=== PATIENT | female | born 1935 | race Caucasian/White ===

== ENCOUNTER 2020-12-13 05:04 | Inpatient (IN) ==
[2020-12-13] MEDS ORDERED: NITROGLYCERIN 2% OINTMENT 30GM TUBE EXT STA (05:48)
[2020-12-13] MEDS ORDERED: FUROSEMIDE 40 MG/4 ML VIAL IV STA ×2 (05:48→06:19)
[2020-12-13 06:00] LABS: Basophils # (auto) 0.02 K/uL (0-0.2); Basophils % (auto) 0.2 %; Hematocrit (blood only) 37.1 % (37-47); Hemoglobin 12.6 g/dL (12.0-16.0); Immature Granulocytes # (auto) 0.14 K/uL (0.00-0.02); Immature Granulocytes % (auto) 1.1 %; Lymphocytes % (auto) 3.8 %; Mean Corpuscular Hemoglobin 31.7 pg (25-34); Mean Corpuscular Volume 93.2 fL (80-100); Mean Platelet Volume 10.8 fL (7.4-10.4); Monocytes # (auto) 1.26 K/uL (0.11-0.59); Monocytes % (auto) 9.7 %; Neutrophils # (auto) 11.11 K/uL (1.4-6.5); Neutrophils % (auto) 85.2 %; Platelet Count 405 K/uL (130-400); RDW Coefficient of Variation 14.7 % (11.5-14.5); RDW Standard Deviation 50.1 fL (36.4-46.3); Red Blood Count 3.98 M/uL (4.2-5.4); White Blood Count 13.03 K/uL (4.8-10.8)
[2020-12-13 06:08] LABS: Albumin Level 2.5 gm/dl (3.4-5.0); Calcium 9.1 mg/dl (8.5-10.1); Creatinine Clr Calc Pharmacy 23.5 ml/min; Est GFR (African American) 27.4 ml/min; Est GFR (Non-African American) 23.6 ml/min; Magnesium 2.5 mg/dl (1.8-2.4); Potassium 3.4 mmol/L (3.5-5.1)
[2020-12-13 06:22] LABS: Albumin Globulin Ratio 0.4 (0.9-2); Bilirubin,Total 1.3 mg/dl (0.2-1); Globulin 5.7 gm/dl (2.5-4.0); Total Protein 8.2 gm/dl (6.4-8.2); Troponin I 0.095 ng/ml (0-0.045)
[2020-12-13 06:30] LABS: Influenza A virus by PCR Negative (Negative); Influenza B virus by PCR Negative (Negative)
[2020-12-13] MEDS ORDERED: LACTATED RINGER'S 250 ML IV ONE (06:39)
[2020-12-13] MEDS ORDERED: LACTATED RINGER'S 1,000 ML IV SCH (06:45)
[2020-12-13] MEDS ORDERED: cefTRIAXone SODIUM 1,000 MG/50 ML BAG IV STA (06:45)
[2020-12-13 06:48] LABS: Appearance Urine Turbid (Clear); Bacteria Urine Automated 4+ (Negative); Blood Urine 3+ (Negative); Color Urine Orange; Glucose Urine UA Negative (Negative); Ketones Urine 1+ (Negative); Leukocyte Esterase Urine 2+ (Negative); Nitrite Urine Negative (Negative); Protein Urine 2+ (Negative); RBC Urine Automated >30 /hpf (0-4); Specific Gravity Urine 1.021 (1.000-1.030); Urobilinogen Urine Negative (Negative)
[2020-12-13 07:00] LABS: Bilirubin Urine 1+ (Negative)
[2020-12-13] MEDS ORDERED: dexAMETHasone 6 MG in SYRINGE 0 ML IV ONE (07:25)
[2020-12-13] MEDS ORDERED: DEXAMETHASONE SOD INJ 4 MG/ML VIAL ONE (07:38)
[2020-12-13] MEDS ORDERED: LORazepam 0.5 MG/1 ML VIAL IV STA (07:46)
--- NOTE | 2020-12-13 08:28 | XRay Report ---
SINGLE VIEW CHEST CLINICAL HISTORY: Dyspnea. FINDINGS: An AP, portable, upright chest radiograph is compared to study dated 03/31/2019 and correlat ed with chest CT dated 04/13/2015. The examination is degraded by portable technique and patient rotat ion. The heart is mildly enlarged noting atherosclerotic calcification of the thoracic aorta. Hazy ai rspace opacities are seen throughout both lungs. No large pleural effusion or pneumothorax is identif ied. The skeletal structures are osteopenic. The bony thorax is grossly intact. IMPRESSION: Hazy airspace opacities are seen throughout both lungs. Differential considerations inclu de fluid overload/edema and/or an infectious/inflammatory pneumonitis. Clinical correlation will be r equired and radiographic follow-up to resolution is recommended. ACT 112: Negative or not required by law. Electronically signed by: Taco Monzon M.D. 12/13/2020 8:26 AM
--- NOTE | 2020-12-13 08:32 | XRay Report ---
XR pelvis 1-2V routine CLINICAL HISTORY: Left hip pain. COMPARISON STUDY: Abdomen and pelvis CT 04/13/2015. FINDINGS: Severe osteoarthritis of the right hip again noted. There is a left total hip arthroplasty. The hardware appears intact. No fracture or dislocation within the pelvis or hips. Soft tissues are unremarkable. The visualized sacrum is intact. IMPRESSION: No fractures within the pelvis or hips. ACT 112: Negative or not required by law. Electronically signed by: Guido Richmond M.D. 12/13/2020 8:30 AM
[2020-12-13] MEDS: POTASSIUM CHLORIDE / WTR 10 MEQ/100 ML PLCT IV SCH ×2 (08:57→12:14)
--- NOTE | 2020-12-13 09:41 | History & Physical Report ---
Date of Service December 13, 2020 Assessment & Plan (1) Acute respiratory failure with hypoxia: (2) Sepsis: (3) Pneumonia due to COVID-19 virus: Plan: This is an 85-year-old female who has significant past medical history of depression with anxiety, chronic interstitial cystitis, HLD, cerebral vascular disease, somatization, IBS who presents to ER secondary to altered mental status x2 days. Pt meets Sepsis criteria on admission 2/2 to wbc 13k, tachypnea, tachycardia Source: Covid PNA and possible UTI Blood and urine cultures pending Received IV rocephin in ED Started on LR @ 100cc/hr - no bolus 2/2 to initial concern for volume overload and in setting of covid-19 ESR 82, CRP 29.2, procalcitonin 0.58 admit to PCU continue bipap IV Dexamethasone daily Currently does not meet criteria for Remdesivir 2/2 to renal function, reassess daily and initiate if able Pt with restlessness and agitation, will require 1:1 for now albuterol neb tx QID 2g rocephin daily; 100mg IV doxy bid obtain MRSA screen IV pepcid for GI prophylaxis keep NPO 2/2 to encephalopathy and requiring bipap therapy Asp precautions given diarrhea likely 2/2 to covid but will check stool culture and cdiff (4) Acute metabolic encephalopathy: Plan: Multi factorial in setting of sepsis, covid-19, UTI, YUMIKO and hypernatremia (5) UTI (urinary tract infection): Plan: UA concerning for UTI continue IV rocephin await urine culture heredia cath placed 2/2 to AMS (6) Elevated troponin: Plan: Initial trop 0.095 no c/o chest pain, ecg w/o st t wave abnormality likely demand ischemia in setting of yumiko and hypoxia will cycle q6h no prior hx of cad (7) YUMIKO (acute kidney injury): Plan: baseline cr ~ 1.0 bun/cr 51 and 1.90 obtain urine studies/serum osm likely due to dehydration/pre renal (8) Hypernatremia: Plan: suspect acute likely 2/2 to GI loss and poor intake 3.0L free water deficit given mild hyperglycemia and in setting of dexamethasone administration will give IV LR @ 100cc/hr x 2 L bmp @ 1100 & 1700 (9) Metabolic acidosis: Plan: likely multifactorial in setting of YUMIKO, lactic acidosis, electrolyte derangements, acute resp failure obtain abg (10) Lactic acidosis: Plan: LA 2.8, likely multifactorial in setting of possible sepsis, hypoxia and yumiko continue IVF, cycle (11) Hypokalemia: Plan: k 3.4, replaced monitor bmp (12) Pre-diabetes: Plan: a1c 5.9 monitor accu checks given dexamethasone administration if bsg consistently elevated add insulin coverage (13) DVT prophylaxis: Plan: SQ Heparin 7500 Q8hr per covid protocol Dipso: PCU PCP: Genna Velazquez DNR/DNI with guarded prognosis, discussed with at bedside Pt was seen and examined in collaboration with Dr. Dhaliwal, please see addendum History of Present Illness Chief Complaint: AMS x 2 days. Primary Care Provider: Sowmya Velazquez, This is an 85-year-old female who has significant past medical history of depression with anxiety, chronic interstitial cystitis, HLD, cerebral vascular disease, somatization, IBS who presents to ER secondary to altered mental status x2 days. is at bedside and provides history. Unable to obtain history and ROS from patient. He states he has noted increased confusion over the last several months. No formal diagnosis of dementia. However over the past 2 days he has noticed a significant increase in confusion, lethargy, poor oral intake, sinus congestion and cough x1 day. He also admits to patient having diarrhea for the last 2 to 3 days. He denies any documented fever patient complaint of chest pain or visible respiratory distress. He states that she has been in the house and has not gone anywhere for the past 2 years. She is not vaccinated for Covid. and daughter leave the house for work purposes. No known confirmed exposure. states at baseline she is alert to self and surroundings, able to feed herself with assistance and able to walk with assistance. This is rapidly declined over the past 2 days. He states overall intake has been diminished for the past 2 days, but over the last several months her appetite has decreased. Over the past 2 days he has only got a few ounces of water in her. She has not been able to take any of her medication. History from also difficult to obtain. In ED patient was on respiratory standpoint and hypoxic. She did require BiPAP therapy initially and there was concern for possible volume overload and she received 20 mg of IV Lasix. Lab work revealed elevated WBC 13.03, H&H 12.6 and 37.11, sodium 152 calcium 3.4, BUN for 1, creatinine 1.90, glue was 140, lactate 2.8, troponin 0 0.095, positive urine this, chest x-ray concerning for pneumonia or edema and SARS-CoV-2 positive. Allergies Allergy/AdvReac Type Severity Reaction Status Date / Time Penicillins Allergy Severe SWELLING Verified 12/13/20 08:20 OF THE FACE Sulfa (Sulfonamide Allergy Severe Hives Verified 12/13/20 08:20 Antibiotics) naproxen Allergy Intermediate RASH Verified 12/13/20 08:20 paroxetine Allergy Intermediate MUSCLE PAIN Verified 12/13/20 08:20 tapentadol Allergy Mild SKIN Verified 12/13/20 08:20 IRRITATION codeine AdvReac Mild DROWSINESS Verified 12/13/20 08:20 Home Medications Medication Instructions Recorded Confirmed Type Lactobacills gasseri-Bifidobac 1 cap PO DAILY 12/13/20 12/13/20 History bifidum,longum 1.5 billion cell capsule ([facility]) Multiple Minerals Vitamin 1 tab PO DAILY 12/13/20 12/13/20 History Prevagen 10 mg PO DAILY 12/13/20 12/13/20 History Zantac 150mg Tablet 150 mg PO BID 12/13/20 12/13/20 History albuterol sulfate 90 mcg/actuation 1 inh INHALATION QID PRN 12/13/20 12/13/20 History aerosol inhaler (ProAir HFA) cholecalciferol (vitamin D3) 125 125 mcg PO DAILY 12/13/20 12/13/20 History mcg (5,000 unit) tablet (Vitamin D3) conjugated estrogens 0.625 mg 0.625 mg PO DAILY 12/13/20 12/13/20 History tablet (Premarin) cyanocobalamin (vitamin B-12) 500 500 mcg PO DAILY 12/13/20 12/13/20 History mcg tablet (Vitamin B-12) diclofenac sodium 50 mg 50 mg PO TID PRN 12/13/20 12/13/20 History tablet,delayed release fluocinonide 0.05 % topical 1 applic TOPICAL BID PRN 12/13/20 12/13/20 History solution garlic 1,000 mg capsule (garlic 1,000 mg PO DAILY 12/13/20 12/13/20 History oil) hydroxyzine HCl 10 mg tablet 10 mg PO Q6H PRN 12/13/20 12/13/20 History magnesium 250 mg tablet 250 mg PO DAILY 12/13/20 12/13/20 History methenamine-sodium salicylate 162 1 tab PO DAILY PRN 12/13/20 12/13/20 History mg-162.5 mg tablet (Cystex Plus (methenamine-sodium salicylate)) metronidazole 0.75 % topical cream 1 applic TOPICAL BID PRN 12/13/20 12/13/20 History (MetroCream) polyethylene glycol 3350 17 17 g PO DAILY 12/13/20 12/13/20 History gram/dose oral powder (Miralax) senna-fennel tablet 1 tab PO DAILY 12/13/20 12/13/20 History Past Med/Surg History Medical History Cerebrovascular disease Chronic interstitial cystitis Depression with anxiety Diverticulitis Surgical History H/O: hysterectomy History of appendectomy History of cystoscopy History of hemorrhoidectomy History of hip replacement Left History of oophorectomy History of partial colectomy History of tubal ligation S/P tonsillectomy and adenoidectomy Family History Brother Heart disease Father Alcohol abuse Mother CHF (congestive heart failure) Social History Smoking Status: Never smoker Hx Alcohol Use: No Hx Substance Use: No Preferred Language: Turkmen Communication Ability: Effective marital status: Current Living Situation: Spouse Feels Safe at Home: Yes Assistive Devices: Oxygen - Continuous Review of Systems Review of Systems: Unobtainable due to cognitive status Physical Exam Physical Exam: Constitutional: WD/WN, vitals as above, +bipap, sitting up in bed, restless and constantly reaching,unable to answer questions appropriately, confused Head: Normocephalic, Atraumatic Eyes: PERRL, conjunctivae normal, anicteric sclerae ENMT: external ear and nose normal, oropharynx normal Neck: trachea midline, no thyromegaly normal visual inspection Respiratory: increased respiratory effort, lungs clear to auscultation, no wheeze, rales, rhonchi. +bipap Cardiovascular: RRR, no murmur, no edema Vessels: no JVD or carotid bruit Chest: normal inspection of chest Abdomen: normal bowel sounds, soft, nontender, no hepatosplenomegaly Musculoskeletal: no cyanosis or clubbing, pt unable to cooperate with strength testing but arom x 4 Skin: no rashes, warm and dry normal turgor Neurologic: PERRL no face palsy, CN's II-XI grossly intact bilaterally and moves all extremities Psychiatric: alert but not oriented, confused Lymphatic: no cervical or axillary lymphadenopathy : deferred Results & Data Results & Data ([facility]) Vital Signs (Past 12 Hours) Vital Signs Temp Pulse Resp BP Pulse Ox 12/13/20 09:16 24 118/70 96 12/13/20 09:00 90 29 H 97 12/13/20 08:50 29 H 99 12/13/20 08:47 29 H 95 12/13/20 08:30 96 H 25 H 98 12/13/20 08:20 91 H 25 H 96 12/13/20 08:10 117 H 24 94 12/13/20 08:02 87 23 94 12/13/20 07:50 95 H 22 12/13/20 07:47 91 H 24 99 12/13/20 07:32 88 25 H 96 12/13/20 07:17 98 H 23 98/46 L 95 12/13/20 07:00 84 20 95 12/13/20 06:50 86 23 96 12/13/20 06:47 89 24 94 12/13/20 06:30 20 93 12/13/20 06:16 104 H 24 115/73 95 12/13/20 06:03 104 H 94 12/13/20 06:01 94 H 20 106/72 94 12/13/20 05:40 101 H 29 H 96/70 L 94 12/13/20 05:36 104 H 24 96 12/13/20 05:34 25 H 92 12/13/20 05:15 36.5 C 102 H 30 H 115/64 83 L Diagnostic Findings Chest X-Ray 12/13/20 05:49 SINGLE VIEW CHEST CLINICAL HISTORY: Dyspnea. FINDINGS: An AP, portable, upright chest radiograph is compared to study dated 03/31/2019 and correlated with chest CT dated 04/13/2015. The examination is degraded by portable technique and patient rotation. The heart is mildly enlarged noting atherosclerotic calcification of the thoracic aorta. Hazy airspace opacities are seen throughout both lungs. No large pleural effusion or pneumothorax is identified. The skeletal structures are osteopenic. The bony thorax is grossly intact. IMPRESSION: Hazy airspace opacities are seen throughout both lungs. Differential considerations include fluid overload/edema and/or an infectious/inflammatory pneumonitis. Clinical correlation will be required and radiographic follow-up to resolution is recommended. ACT 112: Negative or not required by law. Electronically signed by: Taco Monzon M.D. 12/13/2020 8:26 AM Pelvis X-Ray 12/13/20 05:53 XR pelvis 1-2V routine CLINICAL HISTORY: Left hip pain. COMPARISON STUDY: Abdomen and pelvis CT 04/13/2015. FINDINGS: Severe osteoarthritis of the right hip again noted. There is a left total hip arthroplasty. The hardware appears intact. No fracture or dislocation within the pelvis or hips. Soft tissues are unremarkable. The visualized sacrum is intact. IMPRESSION: No fractures within the pelvis or hips. ACT 112: Negative or not required by law. Electronically signed by: Guido Richmond M.D. 12/13/2020 8:30 AM Medications Administered Medication List Lactated Ringer's (Lr) 1,000 mls @ 100 mls/hr IV .Q10H SHAYLEE Stop: 01/12/21 06:44 Last Admin: 12/13/20 07:30 Dose: 100 mls/hr Documented by: [id number] Potassium Chloride (K Kj / Wtr) 10 meq in 100 mls @ 100 mls/hr IV Q1H SHAYLEE Stop: 12/13/20 10:29 Last Admin: 12/13/20 08:57 Dose: 100 mls/hr Documented by: [id number] Discontinued Medications Dexamethasone (Dexamethasone Sod Inj 4 Mg/Ml Vial) Confirm Administered Dose 8 mg .ROUTE .STK-MED ONE Stop: 12/13/20 07:39 Last Admin: 12/13/20 07:43 Dose: 6 mg Documented by: [id number] Furosemide (Furosemide 40 Mg/4 Ml Vial) 40 mg IV NOW STA Stop: 12/13/20 05:49 Last Admin: 12/13/20 06:19 Dose: Not Given Documented by: [id number] Furosemide (Furosemide 40 Mg/4 Ml Vial) 20 mg IV NOW STA Stop: 12/13/20 06:20 Last Admin: 12/13/20 06:25 Dose: 20 mg Documented by: [id number] Lactated Ringer's (Lr) 250 mls @ 999 mls/hr IV .Q16M ONE Stop: 12/13/20 06:54 Last Infusion: 12/13/20 07:34 Dose: 0 mls/hr Documented by: [id number] Admin: 12/13/20 06:56 Dose: 999 mls/hr Documented by: [id number] Ceftriaxone Sodium (Rocephin) 1,000 mg in 50 mls @ 100 mls/hr IV NOW STA Stop: 12/13/20 07:14 Last Infusion: 12/13/20 07:33 Dose: 0 mls/hr Documented by: [id number] Admin: 12/13/20 06:56 Dose: 100 mls/hr Documented by: [id number] Dexamethasone 6 mg/ Syringe 1.5 mls @ 1 mls/min IV ONE ONE Stop: 12/13/20 07:26 Last Admin: 12/13/20 07:43 Dose: Not Given Documented by: [id number] Lorazepam (Ativan) 0.5 mg in 1 mls @ 1 mls/min IV NOW STA Stop: 12/13/20 07:47 Last Admin: 12/13/20 07:54 Dose: 1 mls/min Documented by: [id number] Nitroglycerin (Nitroglycerin 2% Ointment 30gm Tube) 0.5 inch EXT NOW STA Stop: 12/13/20 05:49 Last Admin: 12/13/20 06:18 Dose: Not Given Documented by: [id number] ECG Rhythm: normal sinus COVID-19 Results Results COVID-19 Adm Lab Results: RBC 3.52 M/uL (4.2-5.4) L 12/16/20 WBC 14.29 K/uL (4.8-10.8) H 12/16/20 Hgb 10.8 g/dL (12.0-16.0) L 12/16/20 Hct 32.0 % (37-47) L 12/16/20 Plt Count 313 K/uL (130-400) 12/16/20 Neutrophils (%) (Auto) 85.1 % 12/15/20 Lymphocytes (%) (Auto) 10.2 % 12/15/20 Monocytes # (Auto) 0.39 K/uL (0.11-0.59) 12/15/20 Eosinophils # (Auto) 0.00 K/uL (0-0.5) 12/15/20 Immature Granulocyte % (Auto) 1.7 % 12/15/20 Neutrophils # (Auto) 12.02 K/uL (1.4-6.5) H 12/15/20 Lymphocytes # (Auto) 1.44 K/uL (1.2-3.4) 12/15/20 Monocytes # (Auto) 0.39 K/uL (0.11-0.59) 12/15/20 Eosinophils # (Auto) 0.00 K/uL (0-0.5) 12/15/20 Basophils # (Auto) 0.03 K/uL (0-0.2) 12/15/20 Immature Granulocyte # (Auto) 0.24 K/uL (0.00-0.02) H 12/15/20 Na 142 mmol/L (136-145) 12/16/20 K 4.2 mmol/L (3.5-5.1) 12/16/20 Cl 110 mmol/L (98-107) H 12/16/20 CO2 26 mmol/L (21-32) 12/16/20 Anion Gap 6.0 (3-11) 12/16/20 BUN 39 mg/dl (7-18) H 12/16/20 Creatinine 1.25 mg/dl (0.6-1.2) H 12/16/20 BUN/Creatinine Ratio 31.5 (10-20) H 12/16/20 Glucose Level 161 mg/dl (70-99) H 12/16/20 Ca 8.8 mg/dl (8.5-10.1) 12/16/20 Phosphorus Level 2.0 mg/dl (2.5-4.9) L 12/16/20 Total Bilirubin 1.0 mg/dl (0.2-1) 12/16/20 AST/SGOT 40 U/L (15-37) H 12/16/20 ALT/SGPT 29 U/L (12-78) 12/16/20 Alkaline Phosphatase 59 U/L (45-117) 12/16/20 Total Protein 7.2 gm/dl (6.4-8.2) 12/16/20 Albumin 2.1 gm/dl (3.4-5.0) L 12/16/20 Globulin 5.1 gm/dl (2.5-4.0) H 12/16/20 Albumin/Globulin Ratio 0.4 (0.9-2) L 12/16/20 Troponin I 0.159 ng/ml (0-0.045) H* 12/13/20 [id number]-Type Natriuretic Pep 1579 pg/ml (0-1800) 12/13/20 CRP 13.00 mg/dl (0-0.29) H 12/16/20 Procalcitonin 0.42 ng/ml (0-0.5) 12/15/20 D-Dimer 5120 ug/L FEU (0-500) H* 12/16/20 PTT 133.0 Seconds (21.0-31.0) H* 12/16/20 INR 1.3 (0.9-1.1) H 12/15/20 COVID-19 PCR POSITIVE (Negative) A* 12/13/20 ABG pH 7.45 (7.35-7.45) 12/13/20 ABG pCO2 30 mmHg (35-46) L 12/13/20 ABG pO2 89 mmHg (80-95) 12/13/20 ABG HCO3 20 mmol/L (19-24) 12/13/20 ABG O2 Saturation 97.4 % (90-95) H 12/13/20 ABG Base Excess -2.5 mEq/L (-9-1.8) 12/13/20 Chest X-Ray 12/13/20 Code Status & VTE Plan Code Status DNR/DNI discussed with at bedside VTE Prophylaxis Plan VTE Prophylaxis will be ordered: Yes Supervising Physician Co-Signing Physician Notes Pt was seen and examined. Agreed with Micaela KEARNS exam, assessment and plan. 85-year-old female who has significant past medical history of depression with anxiety, chronic interstitial cystitis, HLD, cerebral vascular disease, somatization, IBS who presents to ER secondary to altered mental status x2 days. history obtained at bedside due to pt changed in mental status. as per , pt has been confused for the last few days, but in the last 2 days her symptoms got worst with increased confusion, lethargy and poor oral intake. In ED she was hypoxic where she was placed on Bipap. Lab on admission revealed elevated WBC 13.03, H&H 12.6 and 37.11, sodium 152 calcium 3.4, BUN for 1, creatinine 1.90, glue was 140, lactate 2.8, troponin 0 0.095 and positive COVID 19. Will start on dexametasone 6mg IV daily, but does not meet criteria for Remdesivir due to to renal function. Will start on IV rocephin and doxycycline. Will follow urine and blood cx. Continue gently fluid hydration. Will monitor BMP. Will continue monitor closely in tele. MD Isra
[2020-12-13] MEDS ORDERED: cefTRIAXone SODIUM 2,000 MG in DEXTROSE 5% 50 ML IV ONE (10:00)
[2020-12-13 10:01] LABS: Estimated Average Glucose 123 mg/dl; Hemoglobin A1C 5.9 % (4.5-5.6)
[2020-12-13] MEDS ORDERED: CARBOHYDRATES FOR HYPOGLYCEMIA PO PRN (10:37)
[2020-12-13] MEDS ORDERED: GLUCOSE 10 TABS/TUBE PO PRN (10:37)
[2020-12-13] MEDS ORDERED: DEXTROSE 50% 50 ML SYRINGE IV PRN (10:37)
[2020-12-13] MEDS ORDERED: GLUCOSE 40% GEL 15 GM TUBE PO PRN (10:37)
[2020-12-13] MEDS ORDERED: ONDANSETRON INJ 2 MG/ML 2 ML VIAL IV PRN (10:37)
[2020-12-13] MEDS ORDERED: GLUCAGON FOR INJ 1 MG VIAL SQ PRN (10:37)
[2020-12-13] MEDS: cefTRIAXone SODIUM 1,000 MG/50 ML BAG IV STA ×2 (10:41→11:54)
[2020-12-13] MEDS: ALBUTEROL 0.083% NEBU SOLN 3 ML VIAL NEB SCH ×3 (11:22→20:34)
[2020-12-13 11:29] LABS: Base Excess ABG -2.5 mEq/L (-9-1.8); HCO3 ABG 20 mmol/L (19-24); Oxygen Saturation ABG 97.4 % (90-95); PCO2 ABG 30 mmHg (35-46); PO2 ABG 89 mmHg (80-95); pH ABG 7.45 (7.35-7.45)
[2020-12-13 11:31] LABS: Allen Test Pos (Pos)
[2020-12-13] MEDS: LACTATED RINGER'S 1,000 ML IV SCH ×2 (11:31→18:33)
[2020-12-13 11:33] LABS: BUN Creatinine Ratio 30.4 (10-20); Calcium 8.8 mg/dl (8.5-10.1); Creatinine Clr Calc Pharmacy 25.4 ml/min; Est GFR (Non-African American) 25.9 ml/min; Potassium 3.7 mmol/L (3.5-5.1)
[2020-12-13 11:52] LABS: Thyroid Stimulating Hormone 0.174 uIu/ml (0.300-4.500); Troponin I 0.166 ng/ml (0-0.045)
[2020-12-13 12:08] LABS: T4 Free Thyroxine 1.53 ng/dl (0.8-1.6)
[2020-12-13] MEDS: DOXYCYCLINE HYCLATE 100 MG in DEXTROSE 5% 100 ML IV SCH ×2 (12:14→23:21)
[2020-12-13] MEDS: FAMOTIDINE 20 MG in SYRINGE 3 ML IV SCH (12:14)
[2020-12-13] MEDS: HEPARIN SOD 5,000 UNIT/0.5 ML VIAL SQ SCH ×2 (15:41→23:21)
[2020-12-13 16:26] LABS: Creatinine Urine Random 79.8 mg/dl
[2020-12-13 17:13] LABS: Calcium 8.6 mg/dl (8.5-10.1); Creatinine Clr Calc Pharmacy 25.4 ml/min; Est GFR (Non-African American) 25.9 ml/min; Potassium 3.6 mmol/L (3.5-5.1)
[2020-12-13 17:24] LABS: Troponin I 0.159 ng/ml (0-0.045)
--- NOTE | 2020-12-13 19:01 | Emergency Department Note ---
History of Present Illness General Chief complaint: Shortness of Breath/Dyspnea Stated complaint: ALTERED LEVEL OF RESPONSIVENESS Home Medications Medication Instructions Recorded Confirmed Type Lactobacills gasseri-Bifidobac 1 cap PO DAILY 12/13/20 12/13/20 History bifidum,longum 1.5 billion cell capsule (RED - [employer]) Multiple Minerals Vitamin 1 tab PO DAILY 12/13/20 12/13/20 History Prevagen 10 mg PO DAILY 12/13/20 12/13/20 History Zantac 150mg Tablet 150 mg PO BID 12/13/20 12/13/20 History albuterol sulfate 90 mcg/actuation 1 inh INHALATION QID PRN 12/13/20 12/13/20 History aerosol inhaler (ProAir HFA) cholecalciferol (vitamin D3) 125 125 mcg PO DAILY 12/13/20 12/13/20 History mcg (5,000 unit) tablet (Vitamin D3) conjugated estrogens 0.625 mg 0.625 mg PO DAILY 12/13/20 12/13/20 History tablet (Premarin) cyanocobalamin (vitamin B-12) 500 500 mcg PO DAILY 12/13/20 12/13/20 History mcg tablet (Vitamin B-12) diclofenac sodium 50 mg 50 mg PO TID PRN 12/13/20 12/13/20 History tablet,delayed release fluocinonide 0.05 % topical 1 applic TOPICAL BID PRN 12/13/20 12/13/20 History solution garlic 1,000 mg capsule (garlic 1,000 mg PO DAILY 12/13/20 12/13/20 History oil) hydroxyzine HCl 10 mg tablet 10 mg PO Q6H PRN 12/13/20 12/13/20 History magnesium 250 mg tablet 250 mg PO DAILY 12/13/20 12/13/20 History methenamine-sodium salicylate 162 1 tab PO DAILY PRN 12/13/20 12/13/20 History mg-162.5 mg tablet (Cystex Plus (methenamine-sodium salicylate)) metronidazole 0.75 % topical cream 1 applic TOPICAL BID PRN 12/13/20 12/13/20 History (MetroCream) polyethylene glycol 3350 17 17 g PO DAILY 12/13/20 12/13/20 History gram/dose oral powder (Miralax) senna-fennel tablet 1 tab PO DAILY 12/13/20 12/13/20 History Allergies Allergy/AdvReac Type Severity Reaction Status Date / Time Penicillins Allergy Severe SWELLING Verified 12/13/20 08:20 OF THE FACE Sulfa (Sulfonamide Allergy Severe Hives Verified 12/13/20 08:20 Antibiotics) naproxen Allergy Intermediate RASH Verified 12/13/20 08:20 paroxetine Allergy Intermediate MUSCLE PAIN Verified 12/13/20 08:20 tapentadol Allergy Mild SKIN Verified 12/13/20 08:20 IRRITATION codeine AdvReac Mild DROWSINESS Verified 12/13/20 08:20 Past Med/Surg History Medical History Cerebrovascular disease Chronic interstitial cystitis Depression with anxiety Diverticulitis Surgical History H/O: hysterectomy History of appendectomy History of cystoscopy History of hemorrhoidectomy History of hip replacement Left History of oophorectomy History of partial colectomy History of tubal ligation S/P tonsillectomy and adenoidectomy Family History Brother Heart disease Father Alcohol abuse Mother CHF (congestive heart failure) Social History (Updated 12/13/20 @ 09:49 by Micaela Murcia PA-C) Smoking Status: Never smoker Hx Alcohol Use: No Hx Substance Use: No Preferred Language: Czech Communication Ability: Unable Communication Ability Comment: pt non-verbal at this time, moans in response marital status: Current Living Situation: Spouse Assistive Devices Comment: unable to assess at this time Physical Exam Vital Signs Vital Signs - 24 hr 12/13/20 05:15 12/13/20 05:34 12/13/20 05:36 Temperature 36.5 C Temperature Source Oral Pulse Rate 102 H 104 H Pulse Rate from SpO2 Sensor 100 H Respiratory Rate 30 H 25 H 24 Respiratory Effort / Characteristics Labored Spontaneous Respiratory Depth Deep Respiratory Pattern Regular Blood Pressure 115/64 Blood Pressure Mean 81 Blood Pressure Position Lying Pulse Oximetry 83 L 92 96 Oxygen Delivery Method Nebulizer Oxygen Flow Rate 15 Fraction of Inspired Oxygen 90 Sepsis Recent Fever Within 48 Hours No Sepsis New/Unexplained Change in Mental Status Yes Sepsis Action Taken by Nursing Physician Notified 12/13/20 05:40 12/13/20 06:01 12/13/20 06:03 Temperature Temperature Source Pulse Rate 101 H 94 H 104 H Pulse Rate from SpO2 Sensor Respiratory Rate 29 H 20 Respiratory Effort / Characteristics Respiratory Depth Respiratory Pattern Blood Pressure 96/70 L 106/72 Blood Pressure Mean 78 83 Blood Pressure Position Pulse Oximetry 94 94 94 Oxygen Delivery Method BiPAP Oxygen Flow Rate Fraction of Inspired Oxygen Sepsis Recent Fever Within 48 Hours Sepsis New/Unexplained Change in Mental Status Sepsis Action Taken by Nursing 12/13/20 06:16 12/13/20 06:30 12/13/20 06:47 Temperature Temperature Source Pulse Rate 104 H 89 Pulse Rate from SpO2 Sensor 90 89 Respiratory Rate 24 20 24 Respiratory Effort / Characteristics Respiratory Depth Respiratory Pattern Blood Pressure 115/73 Blood Pressure Mean 87 66 Blood Pressure Position Pulse Oximetry 95 93 94 Oxygen Delivery Method Oxygen Flow Rate Fraction of Inspired Oxygen 90 Sepsis Recent Fever Within 48 Hours Sepsis New/Unexplained Change in Mental Status Sepsis Action Taken by Nursing 12/13/20 06:50 12/13/20 07:00 12/13/20 07:17 Temperature Temperature Source Pulse Rate 86 84 98 H Pulse Rate from SpO2 Sensor 86 84 88 Respiratory Rate 23 20 23 Respiratory Effort / Characteristics Respiratory Depth Respiratory Pattern Blood Pressure 98/46 L Blood Pressure Mean 63 Blood Pressure Position Pulse Oximetry 96 95 95 Oxygen Delivery Method Oxygen Flow Rate Fraction of Inspired Oxygen 90 90 90 Sepsis Recent Fever Within 48 Hours Sepsis New/Unexplained Change in Mental Status Sepsis Action Taken by Nursing 12/13/20 07:32 12/13/20 07:47 12/13/20 07:50 Temperature Temperature Source Pulse Rate 88 91 H 95 H Pulse Rate from SpO2 Sensor 88 95 H 100 H Respiratory Rate 25 H 24 22 Respiratory Effort / Characteristics Respiratory Depth Respiratory Pattern Blood Pressure Blood Pressure Mean Blood Pressure Position Pulse Oximetry 96 99 Oxygen Delivery Method Oxygen Flow Rate Fraction of Inspired Oxygen 90 90 Sepsis Recent Fever Within 48 Hours Sepsis New/Unexplained Change in Mental Status Sepsis Action Taken by Nursing 12/13/20 08:02 12/13/20 08:10 12/13/20 08:20 Temperature Temperature Source Pulse Rate 87 117 H 91 H Pulse Rate from SpO2 Sensor 87 87 91 H Respiratory Rate 23 24 25 H Respiratory Effort / Characteristics Respiratory Depth Respiratory Pattern Blood Pressure Blood Pressure Mean Blood Pressure Position Pulse Oximetry 94 94 96 Oxygen Delivery Method BiPAP BiPAP Oxygen Flow Rate Fraction of Inspired Oxygen 90 90 90 Sepsis Recent Fever Within 48 Hours Sepsis New/Unexplained Change in Mental Status Sepsis Action Taken by Nursing 12/13/20 08:30 12/13/20 08:47 12/13/20 08:50 Temperature Temperature Source Pulse Rate 96 H Pulse Rate from SpO2 Sensor 89 89 89 Respiratory Rate 25 H 29 H 29 H Respiratory Effort / Characteristics Respiratory Depth Respiratory Pattern Blood Pressure Blood Pressure Mean Blood Pressure Position Pulse Oximetry 98 95 99 Oxygen Delivery Method BiPAP BiPAP BiPAP Oxygen Flow Rate Fraction of Inspired Oxygen 90 90 90 Sepsis Recent Fever Within 48 Hours Sepsis New/Unexplained Change in Mental Status Sepsis Action Taken by Nursing 12/13/20 09:00 Temperature Temperature Source Pulse Rate 90 Pulse Rate from SpO2 Sensor 90 Respiratory Rate 29 H Respiratory Effort / Characteristics Respiratory Depth Respiratory Pattern Blood Pressure Blood Pressure Mean Blood Pressure Position Pulse Oximetry 97 Oxygen Delivery Method BiPAP Oxygen Flow Rate Fraction of Inspired Oxygen 90 Sepsis Recent Fever Within 48 Hours Sepsis New/Unexplained Change in Mental Status Sepsis Action Taken by Nursing Course Administered Medications Albuterol (Albuterol 0.083% Nebu Soln 3 Ml Vial) 2.5 mg NEB QIDR SHAYLEE Stop: 01/12/21 10:59 Last Admin: 12/13/20 14:49 Dose: 2.5 mg Documented by: [id number] Admin: 12/13/20 11:22 Dose: 2.5 mg Documented by: [id number] Heparin Sodium (Porcine) (Heparin Sod 5,000 Unit/0.5 Ml Vial) 7,500 units SQ Q8 SHAYLEE Stop: 01/12/21 13:59 Last Admin: 12/13/20 15:41 Dose: 7,500 units Documented by: [id number] Famotidine 20 mg/ Syringe 5 mls @ 2.5 mls/min IV DAILY SHAYLEE Stop: 01/12/21 10:36 Last Admin: 12/13/20 12:14 Dose: 2.5 mls/min Documented by: [id number] Doxycycline Hyclate 100 mg/ (Dextrose) 110 mls @ 50 mls/hr IV Q12H SHAYLEE Stop: 12/20/20 10:36 Last Infusion: 12/13/20 14:45 Dose: 0 mls/hr Documented by: [id number] Admin: 12/13/20 12:14 Dose: 50 mls/hr Documented by: [id number] Lactated Ringer's (Lr) 1,000 mls @ 100 mls/hr IV .Q10H SHAYLEE Stop: 12/14/20 06:36 Last Admin: 12/13/20 18:33 Dose: 100 mls/hr Documented by: [id number] Admin: 12/13/20 11:31 Dose: Not Given Documented by: [id number] Discontinued Medications Dexamethasone (Dexamethasone Sod Inj 4 Mg/Ml Vial) Confirm Administered Dose 8 mg .ROUTE .STK-MED ONE Stop: 12/13/20 07:39 Last Admin: 12/13/20 07:43 Dose: 6 mg Documented by: [id number] Furosemide (Furosemide 40 Mg/4 Ml Vial) 40 mg IV NOW STA Stop: 12/13/20 05:49 Last Admin: 12/13/20 06:19 Dose: Not Given Documented by: [id number] Furosemide (Furosemide 40 Mg/4 Ml Vial) 20 mg IV NOW STA Stop: 12/13/20 06:20 Last Admin: 12/13/20 06:25 Dose: 20 mg Documented by: [id number] Lactated Ringer's (Lr) 1,000 mls @ 100 mls/hr IV .Q10H SHAYLEE Stop: 01/12/21 06:44 Last Infusion: 12/13/20 18:29 Dose: 0 mls/hr Documented by: [id number] Admin: 12/13/20 07:30 Dose: 100 mls/hr Documented by: [id number] Lactated Ringer's (Lr) 250 mls @ 999 mls/hr IV .Q16M ONE Stop: 12/13/20 06:54 Last Infusion: 12/13/20 07:34 Dose: 0 mls/hr Documented by: [id number] Admin: 12/13/20 06:56 Dose: 999 mls/hr Documented by: [id number] Ceftriaxone Sodium (Rocephin) 1,000 mg in 50 mls @ 100 mls/hr IV NOW STA Stop: 12/13/20 07:14 Last Infusion: 12/13/20 07:33 Dose: 0 mls/hr Documented by: [id number] Admin: 12/13/20 06:56 Dose: 100 mls/hr Documented by: [id number] Dexamethasone 6 mg/ Syringe 1.5 mls @ 1 mls/min IV ONE ONE Stop: 12/13/20 07:26 Last Admin: 12/13/20 07:43 Dose: Not Given Documented by: [id number] Lorazepam (Ativan) 0.5 mg in 1 mls @ 1 mls/min IV NOW STA Stop: 12/13/20 07:47 Last Admin: 12/13/20 07:54 Dose: 1 mls/min Documented by: [id number] Potassium Chloride (K Kj / Wtr) 10 meq in 100 mls @ 100 mls/hr IV Q1H SHAYLEE Stop: 12/13/20 10:29 Last Infusion: 12/13/20 15:23 Dose: 0 mls/hr Documented by: [id number] Admin: 12/13/20 12:14 Dose: 100 mls/hr Documented by: [id number] Infusion: 12/13/20 10:57 Dose: 0 mls/hr Documented by: [id number] Admin: 12/13/20 08:57 Dose: 100 mls/hr Documented by: [id number] Ceftriaxone Sodium (Rocephin) 1,000 mg in 50 mls @ 100 mls/hr IV NOW STA Stop: 12/13/20 10:15 Last Infusion: 12/13/20 12:30 Dose: 0 mls/hr Documented by: [id number] Admin: 12/13/20 11:54 Dose: 100 mls/hr Documented by: [id number] Nitroglycerin (Nitroglycerin 2% Ointment 30gm Tube) 0.5 inch EXT NOW STA Stop: 12/13/20 05:49 Last Admin: 12/13/20 06:18 Dose: Not Given Documented by: [id number] Medical Decision Making Laboratory Data Result diagrams: 12/13/20 05:15 12/13/20 16:39 Lab Results 12/13/20 12/13/20 12/13/20 Range/Units 05:13 05:15 05:15 WBC 13.03 H (4.8-10.8) K/uL RBC 3.98 L (4.2-5.4) M/uL Hgb 12.6 (12.0-16.0) g/dL Hct 37.1 (37-47) % MCV 93.2 (80-100) fL MCH 31.7 (25-34) pg MCHC 34.0 (32-36) g/dL RDW Std Deviation 50.1 H (36.4-46.3) fL RDW Coeff of Sid 14.7 H (11.5-14.5) % Plt Count 405 H (130-400) K/uL MPV 10.8 H (7.4-10.4) fL Immature Gran % (Auto) 1.1 % Neut % (Auto) 85.2 % Lymph % (Auto) 3.8 % [place] % (Auto) 9.7 % Eos % (Auto) 0.0 % Baso % (Auto) 0.2 % Neut # (Auto) 11.11 H (1.4-6.5) K/uL Lymph # (Auto) 0.50 L (1.2-3.4) K/uL [place] # (Auto) 1.26 H (0.11-0.59) K/uL Eos # (Auto) 0.00 (0-0.5) K/uL Baso # (Auto) 0.02 (0-0.2) K/uL Immature Gran # (Auto) 0.14 H (0.00-0.02) K/uL ESR (0-30) mm/hr Sodium 152 H (136-145) mmol/L Potassium 3.4 L (3.5-5.1) mmol/L Chloride 118 H (98-107) mmol/L Carbon Dioxide 22 (21-32) mmol/L Anion Gap 12.0 H (3-11) BUN 51 H (7-18) mg/dl Creatinine 1.90 H (0.6-1.2) mg/dl Est Cr Clr Drug Dosing 23.5 ml/min Est GFR ( Amer) 27.4 ml/min Est GFR (Non-Af Amer) 23.6 ml/min BUN/Creatinine Ratio 27.0 H (10-20) Glucose 135 H (70-99) mg/dl POC Glucose 140 H (70-99) mg/dl Estimat Average Glucose mg/dl Hemoglobin A1c (4.5-5.6) % Osmolality (280-300) mOsm/kg Lactate (0.4-2.0) mmol/L Calcium 9.1 (8.5-10.1) mg/dl Magnesium 2.5 H (1.8-2.4) mg/dl Total Bilirubin 1.3 H (0.2-1) mg/dl AST 39 H (15-37) U/L ALT 19 (12-78) U/L Alkaline Phosphatase 65 (45-117) U/L Troponin I 0.095 H* (0-0.045) ng/ml C-Reactive Protein (0-0.29) mg/dl NT-Pro-B Natriuret Pep 1579 (0-1800) pg/ml Total Protein 8.2 (6.4-8.2) gm/dl Albumin 2.5 L (3.4-5.0) gm/dl Globulin 5.7 H (2.5-4.0) gm/dl Albumin/Globulin Ratio 0.4 L (0.9-2) Procalcitonin (0-0.5) ng/ml Urine Color Urine Appearance (Clear) Urine pH (4.5-7.5) Ur Specific [place] (1.000-1.030) Urine Protein (Negative) Urine Glucose (UA) (Negative) Urine Ketones (Negative) Urine Blood (Negative) Urine Nitrite (Negative) Urine Bilirubin (Negative) Urine Urobilinogen (Negative) Ur Leukocyte Esterase (Negative) Urine WBC (Auto) (0-5) /hpf Urine RBC (Auto) (0-4) /hpf U Hyaline Cast (Auto) (0-5) /lpf U Epithel Cells (Auto) (0-5) /lpf Urine Bacteria (Auto) (Negative) COVID-19 Eval Order SARS-CoV-2 (PCR) (Negative) Influ A Molecular Assay (Negative) Influ B Molecular Assay (Negative) 12/13/20 12/13/20 12/13/20 Range/Units 05:15 05:15 05:15 WBC (4.8-10.8) K/uL RBC (4.2-5.4) M/uL Hgb (12.0-16.0) g/dL Hct (37-47) % MCV (80-100) fL MCH (25-34) pg MCHC (32-36) g/dL RDW Std Deviation (36.4-46.3) fL RDW Coeff of Sid (11.5-14.5) % Plt Count (130-400) K/uL MPV (7.4-10.4) fL Immature Gran % (Auto) % Neut % (Auto) % Lymph % (Auto) % [place] % (Auto) % Eos % (Auto) % Baso % (Auto) % Neut # (Auto) (1.4-6.5) K/uL Lymph # (Auto) (1.2-3.4) K/uL [place] # (Auto) (0.11-0.59) K/uL Eos # (Auto) (0-0.5) K/uL Baso # (Auto) (0-0.2) K/uL Immature Gran # (Auto) (0.00-0.02) K/uL ESR (0-30) mm/hr Sodium (136-145) mmol/L Potassium (3.5-5.1) mmol/L Chloride (98-107) mmol/L Carbon Dioxide (21-32) mmol/L Anion Gap (3-11) BUN (7-18) mg/dl Creatinine (0.6-1.2) mg/dl Est Cr Clr Drug Dosing ml/min Est GFR ( Amer) ml/min Est GFR (Non-Af Amer) ml/min BUN/Creatinine Ratio (10-20) Glucose (70-99) mg/dl POC Glucose (70-99) mg/dl Estimat Average Glucose mg/dl Hemoglobin A1c (4.5-5.6) % Osmolality (280-300) mOsm/kg Lactate (0.4-2.0) mmol/L Calcium (8.5-10.1) mg/dl Magnesium (1.8-2.4) mg/dl Total Bilirubin (0.2-1) mg/dl AST (15-37) U/L ALT (12-78) U/L Alkaline Phosphatase (45-117) U/L Troponin I (0-0.045) ng/ml C-Reactive Protein (0-0.29) mg/dl NT-Pro-B Natriuret Pep (0-1800) pg/ml Total Protein (6.4-8.2) gm/dl Albumin (3.4-5.0) gm/dl Globulin (2.5-4.0) gm/dl Albumin/Globulin Ratio (0.9-2) Procalcitonin (0-0.5) ng/ml Urine Color Urine Appearance (Clear) Urine pH (4.5-7.5) Ur Specific [place] (1.000-1.030) Urine Protein (Negative) Urine Glucose (UA) (Negative) Urine Ketones (Negative) Urine Blood (Negative) Urine Nitrite (Negative) Urine Bilirubin (Negative) Urine Urobilinogen (Negative) Ur Leukocyte Esterase (Negative) Urine WBC (Auto) (0-5) /hpf Urine RBC (Auto) (0-4) /hpf U Hyaline Cast (Auto) (0-5) /lpf U Epithel Cells (Auto) (0-5) /lpf Urine Bacteria (Auto) (Negative) COVID-19 Eval Order Covid19 at [facility] SARS-CoV-2 (PCR) POSITIVE A* (Negative) Influ A Molecular Assay Negative (Negative) Influ B Molecular Assay Negative (Negative) 12/13/20 12/13/20 12/13/20 Range/Units 05:15 05:15 05:15 WBC (4.8-10.8) K/uL RBC (4.2-5.4) M/uL Hgb (12.0-16.0) g/dL Hct (37-47) % MCV (80-100) fL MCH (25-34) pg MCHC (32-36) g/dL RDW Std Deviation (36.4-46.3) fL RDW Coeff of Sid (11.5-14.5) % Plt Count (130-400) K/uL MPV (7.4-10.4) fL Immature Gran % (Auto) % Neut % (Auto) % Lymph % (Auto) % [place] % (Auto) % Eos % (Auto) % Baso % (Auto) % Neut # (Auto) (1.4-6.5) K/uL Lymph # (Auto) (1.2-3.4) K/uL [place] # (Auto) (0.11-0.59) K/uL Eos # (Auto) (0-0.5) K/uL Baso # (Auto) (0-0.2) K/uL Immature Gran # (Auto) (0.00-0.02) K/uL ESR 82 H (0-30) mm/hr Sodium (136-145) mmol/L Potassium (3.5-5.1) mmol/L Chloride (98-107) mmol/L Carbon Dioxide (21-32) mmol/L Anion Gap (3-11) BUN (7-18) mg/dl Creatinine (0.6-1.2) mg/dl Est Cr Clr Drug Dosing ml/min Est GFR ( Amer) ml/min Est GFR (Non-Af Amer) ml/min BUN/Creatinine Ratio (10-20) Glucose (70-99) mg/dl POC Glucose (70-99) mg/dl Estimat Average Glucose mg/dl Hemoglobin A1c (4.5-5.6) % Osmolality (280-300) mOsm/kg Lactate (0.4-2.0) mmol/L Calcium (8.5-10.1) mg/dl Magnesium (1.8-2.4) mg/dl Total Bilirubin (0.2-1) mg/dl AST (15-37) U/L ALT (12-78) U/L Alkaline Phosphatase (45-117) U/L Troponin I (0-0.045) ng/ml C-Reactive Protein 29.20 H (0-0.29) mg/dl NT-Pro-B Natriuret Pep (0-1800) pg/ml Total Protein (6.4-8.2) gm/dl Albumin (3.4-5.0) gm/dl Globulin (2.5-4.0) gm/dl Albumin/Globulin Ratio (0.9-2) Procalcitonin 0.58 H (0-0.5) ng/ml Urine Color Urine Appearance (Clear) Urine pH (4.5-7.5) Ur Specific [place] (1.000-1.030) Urine Protein (Negative) Urine Glucose (UA) (Negative) Urine Ketones (Negative) Urine Blood (Negative) Urine Nitrite (Negative) Urine Bilirubin (Negative) Urine Urobilinogen (Negative) Ur Leukocyte Esterase (Negative) Urine WBC (Auto) (0-5) /hpf Urine RBC (Auto) (0-4) /hpf U Hyaline Cast (Auto) (0-5) /lpf U Epithel Cells (Auto) (0-5) /lpf Urine Bacteria (Auto) (Negative) COVID-19 Eval Order SARS-CoV-2 (PCR) (Negative) Influ A Molecular Assay (Negative) Influ B Molecular Assay (Negative) 12/13/20 12/13/20 12/13/20 Range/Units 05:15 05:15 05:30 WBC (4.8-10.8) K/uL RBC (4.2-5.4) M/uL Hgb (12.0-16.0) g/dL Hct (37-47) % MCV (80-100) fL MCH (25-34) pg MCHC (32-36) g/dL RDW Std Deviation (36.4-46.3) fL RDW Coeff of Sid (11.5-14.5) % Plt Count (130-400) K/uL MPV (7.4-10.4) fL Immature Gran % (Auto) % Neut % (Auto) % Lymph % (Auto) % [place] % (Auto) % Eos % (Auto) % Baso % (Auto) % Neut # (Auto) (1.4-6.5) K/uL Lymph # (Auto) (1.2-3.4) K/uL [place] # (Auto) (0.11-0.59) K/uL Eos # (Auto) (0-0.5) K/uL Baso # (Auto) (0-0.2) K/uL Immature Gran # (Auto) (0.00-0.02) K/uL ESR (0-30) mm/hr Sodium (136-145) mmol/L Potassium (3.5-5.1) mmol/L Chloride (98-107) mmol/L Carbon Dioxide (21-32) mmol/L Anion Gap (3-11) BUN (7-18) mg/dl Creatinine (0.6-1.2) mg/dl Est Cr Clr Drug Dosing ml/min Est GFR ( Amer) ml/min Est GFR (Non-Af Amer) ml/min BUN/Creatinine Ratio (10-20) Glucose (70-99) mg/dl POC Glucose (70-99) mg/dl Estimat Average Glucose 123 mg/dl Hemoglobin A1c 5.9 H (4.5-5.6) % Osmolality 337 H (280-300) mOsm/kg Lactate (0.4-2.0) mmol/L Calcium (8.5-10.1) mg/dl Magnesium (1.8-2.4) mg/dl Total Bilirubin (0.2-1) mg/dl AST (15-37) U/L ALT (12-78) U/L Alkaline Phosphatase (45-117) U/L Troponin I (0-0.045) ng/ml C-Reactive Protein (0-0.29) mg/dl NT-Pro-B Natriuret Pep (0-1800) pg/ml Total Protein (6.4-8.2) gm/dl Albumin (3.4-5.0) gm/dl Globulin (2.5-4.0) gm/dl Albumin/Globulin Ratio (0.9-2) Procalcitonin (0-0.5) ng/ml Urine Color [place] Urine Appearance Turbid A (Clear) Urine pH 5.0 (4.5-7.5) Ur Specific [place] 1.021 (1.000-1.030) Urine Protein 2+ H (Negative) Urine Glucose (UA) Negative (Negative) Urine Ketones 1+ H (Negative) Urine Blood 3+ H (Negative) Urine Nitrite Negative (Negative) Urine Bilirubin 1+ H (Negative) Urine Urobilinogen Negative (Negative) Ur Leukocyte Esterase 2+ H (Negative) Urine WBC (Auto) 10-30 H (0-5) /hpf Urine RBC (Auto) >30 H (0-4) /hpf U Hyaline Cast (Auto) 1-5 (0-5) /lpf U Epithel Cells (Auto) 5-10 H (0-5) /lpf Urine Bacteria (Auto) 4+ H (Negative) COVID-19 Eval Order SARS-CoV-2 (PCR) (Negative) Influ A Molecular Assay (Negative) Influ B Molecular Assay (Negative) 12/13/20 Range/Units 08:08 WBC (4.8-10.8) K/uL RBC (4.2-5.4) M/uL Hgb (12.0-16.0) g/dL Hct (37-47) % MCV (80-100) fL MCH (25-34) pg MCHC (32-36) g/dL RDW Std Deviation (36.4-46.3) fL RDW Coeff of Sid (11.5-14.5) % Plt Count (130-400) K/uL MPV (7.4-10.4) fL Immature Gran % (Auto) % Neut % (Auto) % Lymph % (Auto) % [place] % (Auto) % Eos % (Auto) % Baso % (Auto) % Neut # (Auto) (1.4-6.5) K/uL Lymph # (Auto) (1.2-3.4) K/uL [place] # (Auto) (0.11-0.59) K/uL Eos # (Auto) (0-0.5) K/uL Baso # (Auto) (0-0.2) K/uL Immature Gran # (Auto) (0.00-0.02) K/uL ESR (0-30) mm/hr Sodium (136-145) mmol/L Potassium (3.5-5.1) mmol/L Chloride (98-107) mmol/L Carbon Dioxide (21-32) mmol/L Anion Gap (3-11) BUN (7-18) mg/dl Creatinine (0.6-1.2) mg/dl Est Cr Clr Drug Dosing ml/min Est GFR ( Amer) ml/min Est GFR (Non-Af Amer) ml/min BUN/Creatinine Ratio (10-20) Glucose (70-99) mg/dl POC Glucose (70-99) mg/dl Estimat Average Glucose mg/dl Hemoglobin A1c (4.5-5.6) % Osmolality (280-300) mOsm/kg Lactate 2.8 H* (0.4-2.0) mmol/L Calcium (8.5-10.1) mg/dl Magnesium (1.8-2.4) mg/dl Total Bilirubin (0.2-1) mg/dl AST (15-37) U/L ALT (12-78) U/L Alkaline Phosphatase (45-117) U/L Troponin I (0-0.045) ng/ml C-Reactive Protein (0-0.29) mg/dl NT-Pro-B Natriuret Pep (0-1800) pg/ml Total Protein (6.4-8.2) gm/dl Albumin (3.4-5.0) gm/dl Globulin (2.5-4.0) gm/dl Albumin/Globulin Ratio (0.9-2) Procalcitonin (0-0.5) ng/ml Urine Color Urine Appearance (Clear) Urine pH (4.5-7.5) Ur Specific [place] (1.000-1.030) Urine Protein (Negative) Urine Glucose (UA) (Negative) Urine Ketones (Negative) Urine Blood (Negative) Urine Nitrite (Negative) Urine Bilirubin (Negative) Urine Urobilinogen (Negative) Ur Leukocyte Esterase (Negative) Urine WBC (Auto) (0-5) /hpf Urine RBC (Auto) (0-4) /hpf U Hyaline Cast (Auto) (0-5) /lpf U Epithel Cells (Auto) (0-5) /lpf Urine Bacteria (Auto) (Negative) COVID-19 Eval Order SARS-CoV-2 (PCR) (Negative) Influ A Molecular Assay (Negative) Influ B Molecular Assay (Negative) Imaging Data Radiologist's Impression: Chest X-Ray 12/13/20 05:49 SINGLE VIEW CHEST CLINICAL HISTORY: Dyspnea. FINDINGS: An AP, portable, upright chest radiograph is compared to study dated 03/31/2019 and correlated with chest CT dated 04/13/2015. The examination is degraded by portable technique and patient rotation. The heart is mildly enlarged noting atherosclerotic calcification of the thoracic aorta. Hazy airsp gabrielle opacities are seen throughout both lungs. No large pleural effusion or pneumothorax is identified. The skeletal structures are osteopenic. The bony thorax is grossly intact. IMPRESSION: Hazy airspace opacities are seen throughout both lungs. Differential considerations include fluid overload/edema and/or an infectious/inflammatory pneumonitis. Clinical correlation will be required and radiographic follow-up to resolution is recommended. ACT 112: Negative or not required by law. Electronically signed by: Taco Monzon M.D. 12/13/2020 8:26 AM Pelvis X-Ray 12/13/20 05:53 XR pelvis 1-2V routine CLINICAL HISTORY: Left hip pain. COMPARISON STUDY: Abdomen and pelvis CT 04/13/2015. FINDINGS: Severe osteoarthritis of the right hip again noted. There is a left total hip arthroplasty. The hardware appears intact. No fracture or dislocation within the pelvis or hips. Soft tissues are unremarkable. The visualized sacrum is intact. IMPRESSION: No fractures within the pelvis or hips. ACT 112: Negative or not required by law. Electronically signed by: Guido Richmond M.D. 12/13/2020 8:30 AM Discharge Plan Visit Data Chief Complaint: Shortness of Breath/Dyspnea Stated Complaint: ALTERED LEVEL OF RESPONSIVENESS ED Provider: Nanci Santos Patient Disposition: Admitted As Inpatient Discharge Instructions Interventions: ED Discharge Assessment Last Done: 12/13/20 09:54
[2020-12-14] MEDS: HEPARIN SOD 5,000 UNIT/0.5 ML VIAL SQ SCH ×3 (06:29→22:27)
[2020-12-14 06:42] LABS: Basophils # (auto) 0.01 K/uL (0-0.2); Basophils % (auto) 0.1 %; Hematocrit (blood only) 32.7 % (37-47); Immature Granulocytes # (auto) 0.11 K/uL (0.00-0.02); Immature Granulocytes % (auto) 0.9 %; Lymphocytes # (auto) 0.79 K/uL (1.2-3.4); Lymphocytes % (auto) 6.5 %; Mean Corpuscular Hemoglobin 30.6 pg (25-34); Mean Corpuscular Hgb Conc 33.6 g/dL (32-36); Mean Corpuscular Volume 90.8 fL (80-100); Mean Platelet Volume 10.2 fL (7.4-10.4); Monocytes # (auto) 0.59 K/uL (0.11-0.59); Monocytes % (auto) 4.8 %; Neutrophils # (auto) 10.67 K/uL (1.4-6.5); Neutrophils % (auto) 87.7 %; Platelet Count 278 K/uL (130-400); RDW Coefficient of Variation 14.8 % (11.5-14.5); White Blood Count 12.17 K/uL (4.8-10.8)
[2020-12-14 07:15] LABS: Albumin Level 2.1 gm/dl (3.4-5.0); BUN Creatinine Ratio 37.9 (10-20); Creatinine Clr Calc Pharmacy 27.8 ml/min; Est GFR (African American) 33.5 ml/min; Est GFR (Non-African American) 28.9 ml/min; Magnesium 2.3 mg/dl (1.8-2.4); Potassium 3.6 mmol/L (3.5-5.1)
[2020-12-14 07:24] LABS: Albumin Globulin Ratio 0.4 (0.9-2); Bilirubin,Total 0.7 mg/dl (0.2-1); Globulin 5.2 gm/dl (2.5-4.0); Total Protein 7.3 gm/dl (6.4-8.2)
[2020-12-14] MEDS: ALBUTEROL 0.083% NEBU SOLN 3 ML VIAL NEB SCH (07:52)
[2020-12-14] MEDS ORDERED: dexAMETHasone 6 MG in SYRINGE 0 ML IV SCH (09:00)
[2020-12-14] MEDS ORDERED: cefTRIAXone SODIUM 2,000 MG in DEXTROSE 5% 50 ML IV SCH (09:00)
[2020-12-14] MEDS: FAMOTIDINE 20 MG in SYRINGE 3 ML IV SCH (09:01)
[2020-12-14] MEDS ORDERED: ALBUTEROL 0.083% NEBU SOLN 3 ML VIAL NEB PRN (09:28)
[2020-12-14] MEDS: DOXYCYCLINE HYCLATE 100 MG in DEXTROSE 5% 100 ML IV SCH ×2 (11:35→22:28)
--- NOTE | 2020-12-14 12:58 | Electrocardiogram Report ---
Test Reason : Blood Pressure : / mmHG Vent. Rate : 099 BPM Atrial Rate : 099 BPM P-R Int : 138 ms QRS Dur : 060 ms QT Int : 330 ms P-R-T Axes : 062 -30 -18 degrees QTc Int : 423 ms Poor data quality, interpretation may be adversely affected Sinus rhythm Left axis deviation Minimal voltage criteria for LVH, may be normal variant Abnormal ECG When compared with ECG of 31-MAR-2019 18:02, significant artifact is now present Confirmed by Bill Tan ([id number]) on 12/14/2020 12:58:13 PM Referred By: REFERRED SELF Confirmed By:Bill Tan
--- NOTE | 2020-12-14 13:02 | Hospitalist Progress Note ---
Date of Service December 14, 2020 Assessment & Plan (1) Acute respiratory failure with hypoxia: (2) Sepsis: (3) Pneumonia due to COVID-19 virus: Plan: 85-year-old female who has significant past medical history of depression with anxiety, chronic interstitial cystitis, HLD, cerebral vascular disease, somatization, IBS who presents to ER secondary to altered mental status x2 days. Pt meets Sepsis criteria on admission 2/2 to wbc 13k, tachypnea, tachycardia Source: Covid PNA and possible UTI Blood cultures negative so far Received IV rocephin in ED Was started on LR @ 100cc/hr - no bolus 2/2 to initial concern for volume overload and in setting of covid-19 ESR 82, CRP 29.2, procalcitonin 0.58 Urine culture growing GNR probably Enterococcus. Antibiotics changed to ampicillin Was on BiPAP yesterday until yesterday evening when she was switched to high flow nasal cannula Continue IV Dexamethasone daily Did not meet criteria for Remdesivir on admission 2/2 to renal function Renal function improving. Creatinine 1.61 today. Continue to monitor renal function and reassess Albuterol neb as needed MRSA screen negative IV pepcid for GI prophylaxis Start diet with aspiration precautions (4) Acute metabolic encephalopathy: Plan: Multi factorial in setting of sepsis, covid-19, UTI, YUMIKO and hypernatremia (5) UTI (urinary tract infection): Plan: UA concerning for UTI continue IV rocephin await urine culture heredia cath placed 2/2 to AMS (6) Elevated troponin: Plan: Initial trop 0.095 no c/o chest pain, ecg w/o st t wave abnormality likely demand ischemia in setting of yumiko and hypoxia (7) YUMIKO (acute kidney injury): Plan: baseline cr ~ 1.0 bun/cr 51 and 1.90 Renal function improving with creatinine of 1.61 today Continue to monitor Avoid nephrotoxins (8) Metabolic acidosis: Plan: likely multifactorial in setting of YUMIKO, lactic acidosis, electrolyte derangements, acute resp failure obtain abg (9) Lactic acidosis: Plan: LA 2.8, likely multifactorial in setting of possible sepsis, hypoxia and yumiko continue IVF, cycle Lactic acidosis resolved (10) Hypernatremia: Plan: likely 2/2 to GI loss and poor intake 3.0L free water deficit Was on LR 2L Na improving now 148 today RN reports patient drinking Will monitor (11) Hypokalemia: (12) Pre-diabetes: Plan: a1c 5.9 monitor accu checks given dexamethasone administration if bsg consistently elevated add insulin coverage (13) DVT prophylaxis: Plan: SQ Heparin 7500 Q8hr per covid protocol Dipso: PCU PCP: Genna Velazquez DNR/DNI with guarded prognosis, discussed with at bedside Admission and Anticipated Discharge Date Admission Date: December 13, 2020 Subjective 85-year-old woman with history of depression, anxiety, chronic interstitial cystitis, hyperlipidemia, cerebrovascular disease, IBS who presented to the ER for altered mental status for 2 days. Being managed for sepsis, acute respiratory failure with hypoxia secondary to COVID-19 pneumonia. Patient seen and examined this morning. Patient currently on high flow nasal oxygen Patient is awake and alert oriented to person, knows she is in the hospital but does not know which. Difficult obtaining review of systems due to significant confusion Physical Exam Constitutional: Elderly woman in no obvious distress Eyes: PERRL, conjunctivae normal, anicteric sclerae ENMT: On high flow nasal oxygen Respiratory: On high flow nasal oxygen, diminished breath sounds bilaterally Cardiovascular: RRR, S1-S2 Gastrointestinal (Abdomen): normal bowel sounds, soft, nontender, no hepatosplenomegaly Musculoskeletal: Trace pedal edema Neurologic: Alert and oriented to person, knows she is in the hospital but does not know name. Not oriented to time. Follow simple commands. Confused Results & Data Results & Data ([facility]) Vital Signs (Past 12 Hours) Vital Signs Temp Pulse Pulse Resp BP Pulse Ox 12/14/20 11:39 36.4 C L 87 20 120/73 92 12/14/20 10:19 82 20 94 12/14/20 07:54 85 22 91 12/14/20 07:52 91 H 22 91 12/14/20 07:46 36.8 C 82 18 91 12/14/20 07:21 84 12/14/20 03:48 36.5 C 57 L 26 H 113/70 95 12/14/20 02:25 63 20 95 Laboratory Results Abnormal lab results 12/13/20 12/13/20 12/14/20 Range/Units 16:39 17:49 06:22 WBC 12.17 H (4.8-10.8) K/uL RBC 3.60 L (4.2-5.4) M/uL Hgb 11.0 L (12.0-16.0) g/dL Hct 32.7 L (37-47) % RDW Std Deviation 49.0 H (36.4-46.3) fL RDW Coeff of Sid 14.8 H (11.5-14.5) % Neut # (Auto) 10.67 H (1.4-6.5) K/uL Lymph # (Auto) 0.79 L (1.2-3.4) K/uL Immature Gran # (Auto) 0.11 H (0.00-0.02) K/uL Sodium 151 H (136-145) mmol/L Chloride 121 H (98-107) mmol/L BUN 55 H (7-18) mg/dl Creatinine 1.76 H (0.6-1.2) mg/dl BUN/Creatinine Ratio 31.0 H (10-20) Glucose 145 H (70-99) mg/dl POC Glucose 141 H (70-99) mg/dl Troponin I 0.159 H* (0-0.045) ng/ml Albumin (3.4-5.0) gm/dl Globulin (2.5-4.0) gm/dl Albumin/Globulin Ratio (0.9-2) 12/14/20 Range/Units 06:22 WBC (4.8-10.8) K/uL RBC (4.2-5.4) M/uL Hgb (12.0-16.0) g/dL Hct (37-47) % RDW Std Deviation (36.4-46.3) fL RDW Coeff of Sid (11.5-14.5) % Neut # (Auto) (1.4-6.5) K/uL Lymph # (Auto) (1.2-3.4) K/uL Immature Gran # (Auto) (0.00-0.02) K/uL Sodium 148 H (136-145) mmol/L Chloride 121 H (98-107) mmol/L BUN 61 H (7-18) mg/dl Creatinine 1.61 H (0.6-1.2) mg/dl BUN/Creatinine Ratio 37.9 H (10-20) Glucose 123 H (70-99) mg/dl POC Glucose (70-99) mg/dl Troponin I (0-0.045) ng/ml Albumin 2.1 L (3.4-5.0) gm/dl Globulin 5.2 H (2.5-4.0) gm/dl Albumin/Globulin Ratio 0.4 L (0.9-2)
[2020-12-14] MEDS: AMPICILLIN 500 MG in SODIUM CHLORIDE 0.9% 50 ML IV SCH ×2 (13:53→18:09)
--- NOTE | 2020-12-14 21:31 | Electrocardiogram Report ---
Test Reason : Blood Pressure : / mmHG Vent. Rate : 087 BPM Atrial Rate : 087 BPM P-R Int : 136 ms QRS Dur : 076 ms QT Int : 368 ms P-R-T Axes : 046 -20 053 degrees QTc Int : 442 ms Poor data quality, interpretation may be adversely affected Normal sinus rhythm Nonspecific T wave abnormality Abnormal ECG When compared with ECG of 13-DEC-2020 05:06, No significant change Confirmed by Bill Tan ([id number]) on 12/14/2020 9:30:36 PM Referred By: REFERRED SELF Confirmed By:Bill Tan
[2020-12-15] MEDS: AMPICILLIN 500 MG in SODIUM CHLORIDE 0.9% 50 ML IV SCH ×3 (01:42→14:15)
[2020-12-15] MEDS: HEPARIN SOD 5,000 UNIT/0.5 ML VIAL SQ SCH (06:25)
[2020-12-15 07:18] LABS: Hematocrit (blood only) 30.4 % (37-47); Hemoglobin 10.5 g/dL (12.0-16.0); Mean Corpuscular Hemoglobin 30.8 pg (25-34); Mean Corpuscular Hgb Conc 34.5 g/dL (32-36); Mean Corpuscular Volume 89.1 fL (80-100); Mean Platelet Volume 10.9 fL (7.4-10.4); Platelet Count 340 K/uL (130-400); RDW Coefficient of Variation 14.8 % (11.5-14.5); RDW Standard Deviation 48.5 fL (36.4-46.3); Red Blood Count 3.41 M/uL (4.2-5.4); White Blood Count 14.37 K/uL (4.8-10.8)
[2020-12-15 07:42] LABS: D Dimer 17470 ug/L FEU (0-500)
[2020-12-15 07:54] LABS: Albumin Level 2.1 gm/dl (3.4-5.0); BUN Creatinine Ratio 35.5 (10-20); C Reactive Protein 14.7 mg/dl (0-0.29); Calcium 8.9 mg/dl (8.5-10.1); Creatinine Clr Calc Pharmacy 31.7 ml/min; Est GFR (African American) 39.3 ml/min; Est GFR (Non-African American) 33.9 ml/min; Potassium 3.4 mmol/L (3.5-5.1)
[2020-12-15 07:57] LABS: Albumin Globulin Ratio 0.4 (0.9-2); Bilirubin,Total 0.8 mg/dl (0.2-1); Globulin 4.9 gm/dl (2.5-4.0)
[2020-12-15] MEDS ORDERED: DEXTROSE 5% 1,000 ML IV SCH (08:00)
[2020-12-15] MEDS ORDERED: Heparin IV Adult Wt-Based Standard WITH Bolus Protocol IV STA (08:02)
[2020-12-15] MEDS ORDERED: HEPARIN SOD (PORCINE) 1000 UNIT/ML IV ONE (08:10)
[2020-12-15] MEDS ORDERED: SODIUM BICARB 8.4% INJ 50 MEQ/50 ML SYR IV STA (08:40)
[2020-12-15] MEDS: HEPARIN SODIUM/DEXTROSE 25,000 UNITS/500 ML BAG IV SCH (09:13)
[2020-12-15] MEDS ORDERED: FUROSEMIDE 40 MG in SYRINGE 0 ML IV ONE (09:15)
[2020-12-15] MEDS: FAMOTIDINE 20 MG in SYRINGE 3 ML IV SCH (09:30)
[2020-12-15 10:04] LABS: Basophils # (auto) 0.03 K/uL (0-0.2); Basophils % (auto) 0.2 %; Hematocrit (blood only) 30.6 % (37-47); Hemoglobin 10.4 g/dL (12.0-16.0); Immature Granulocytes # (auto) 0.24 K/uL (0.00-0.02); Immature Granulocytes % (auto) 1.7 %; Lymphocytes # (auto) 1.44 K/uL (1.2-3.4); Lymphocytes % (auto) 10.2 %; Mean Corpuscular Hemoglobin 30.6 pg (25-34); Mean Platelet Volume 10.1 fL (7.4-10.4); Monocytes # (auto) 0.39 K/uL (0.11-0.59); Monocytes % (auto) 2.8 %; Neutrophils # (auto) 12.02 K/uL (1.4-6.5); Neutrophils % (auto) 85.1 %; Nucleated RBC # (auto) 0.03 K/uL (0-0); Nucleated RBC % (auto) 0.2 %; Platelet Count 296 K/uL (130-400); RDW Coefficient of Variation 14.8 % (11.5-14.5); RDW Standard Deviation 48.8 fL (36.4-46.3); White Blood Count 14.12 K/uL (4.8-10.8)
[2020-12-15 10:28] LABS: INR 1.3 (0.9-1.1); Prothrombin Time 13.1 Seconds (9.0-12.0)
[2020-12-15] MEDS: dexAMETHasone 10 MG in SYRINGE 0 ML IV SCH (10:33)
[2020-12-15 10:44] LABS: Partial Thromboplastin Ratio > 5.3
[2020-12-15 10:48] LABS: Partial Thromboplastin Time > 139.0 Seconds (21.0-31.0)
--- NOTE | 2020-12-15 11:25 | Nephrology Consultation ---
Date of Consultation December 15, 2020 Assessment & Plan (1) Hypernatremia: plateau'd at about 150. in the setting of hyperchloremia and mild hypokalemia. she is dehydrated and taking little po currently, in part d/t confusion, in part d/t restraints started D5W this am only; she also had a dose of lasix this am and would give prn only; also on heparin and doxy which are in D5W > about 25 mL/hourly for former and 200 ml/ daily >order in to add 40 mEq K / L D5W starting w/ next bag (early this evening) same rate >would recheck bmp in AM; no need to check more often (2) YUMIKO (acute kidney injury): improving nonoliguric presumptive YUMIKO stage 1, favor prerenal process from sepsis > baseline creatinine approx 1.1; peak value 1.9 at admission, improved to 1.4 today -daily bmp -cont to avoid nephrotoxins History of Present Illness Reason for Consultation: YUMIKO and hypernatremia Requesting Physician: Dr Kirkland Attending Physician: Eloisa Kirkland MD History of Present Illness 85 y/o F whom I'm asked to see for YUMIKO and hypernatremia was admitted 12/13 with sepsis from covid pneumonia after presenting with 48 hrs of altered mental status and acute respiratory failure. She has alternated between high flow oxyg en and bipap since admission, on bipap currently. PMH includes depression/anxiety w/ hx somatization, HL, chronic interstitial nephritis, cerebral vascular dz, IBS. She had diarrhea and decreased po intake prior to admission. Her baseline creatinine is difficult to pinpoint. in 2016 was 0.9-these are last levels checked as OP. She was 1.1 in Mar 2019. On presentation she was 1.9, improved steadily to 1.4 today. Her presenting sodium was 152; it's 150 today and has ranged 148-152. She is on D5W at 100 mL /hr and is to date 2.8L positive on the admission. She is receiving daily IV dexamethasone; her renal function precludes remdesevir. She is receiving ampicillin for E faecalis UTI. She is being treated for a UTI as well. Allergies Allergy/AdvReac Type Severity Reaction Status Date / Time Penicillins Allergy Severe SWELLING Verified 12/13/20 08:20 OF THE FACE Sulfa (Sulfonamide Allergy Severe Hives Verified 12/13/20 08:20 Antibiotics) naproxen Allergy Intermediate RASH Verified 12/13/20 08:20 paroxetine Allergy Intermediate MUSCLE PAIN Verified 12/13/20 08:20 tapentadol Allergy Mild SKIN Verified 12/13/20 08:20 IRRITATION codeine AdvReac Mild DROWSINESS Verified 12/13/20 08:20 Home Medications Medication Instructions Recorded Confirmed Type Lactobacills gasseri-Bifidobac 1 cap PO DAILY 12/13/20 12/13/20 History bifidum,longum 1.5 billion cell capsule ([employer]) Multiple Minerals Vitamin 1 tab PO DAILY 12/13/20 12/13/20 History Prevagen 10 mg PO DAILY 12/13/20 12/13/20 History Zantac 150mg Tablet 150 mg PO BID 12/13/20 12/13/20 History albuterol sulfate 90 mcg/actuation 1 inh INHALATION QID PRN 12/13/20 12/13/20 History aerosol inhaler (ProAir HFA) cholecalciferol (vitamin D3) 125 125 mcg PO DAILY 12/13/20 12/13/20 History mcg (5,000 unit) tablet (Vitamin D3) conjugated estrogens 0.625 mg 0.625 mg PO DAILY 12/13/20 12/13/20 History tablet (Premarin) cyanocobalamin (vitamin B-12) 500 500 mcg PO DAILY 12/13/20 12/13/20 History mcg tablet (Vitamin B-12) diclofenac sodium 50 mg 50 mg PO TID PRN 12/13/20 12/13/20 History tablet,delayed release fluocinonide 0.05 % topical 1 applic TOPICAL BID PRN 12/13/20 12/13/20 History solution garlic 1,000 mg capsule (garlic 1,000 mg PO DAILY 12/13/20 12/13/20 History oil) hydroxyzine HCl 10 mg tablet 10 mg PO Q6H PRN 12/13/20 12/13/20 History magnesium 250 mg tablet 250 mg PO DAILY 12/13/20 12/13/20 History methenamine-sodium salicylate 162 1 tab PO DAILY PRN 12/13/20 12/13/20 History mg-162.5 mg tablet (Cystex Plus (methenamine-sodium salicylate)) metronidazole 0.75 % topical cream 1 applic TOPICAL BID PRN 12/13/20 12/13/20 History ([employer]roCream) polyethylene glycol 3350 17 17 g PO DAILY 12/13/20 12/13/20 History gram/dose oral powder (Miralax) senna-fennel tablet 1 tab PO DAILY 12/13/20 12/13/20 History Patient History Medical History Cerebrovascular disease Chronic interstitial cystitis Depression with anxiety Diverticulitis Surgical History H/O: hysterectomy History of appendectomy History of cystoscopy History of hemorrhoidectomy History of hip replacement Left History of oophorectomy History of partial colectomy History of tubal ligation S/P tonsillectomy and adenoidectomy Family History Brother Heart disease Father Alcohol abuse Mother CHF (congestive heart failure) Social History Smoking Status: Never smoker Hx Alcohol Use: No Hx Substance Use: No Preferred Language: [place] Communication Ability: Effective Communication Ability Comment: pt non-verbal at this time, moans in response marital status: Current Living Situation: Spouse Feels Safe at Home: Yes Assistive Devices: Cane and Walker Assistive Devices Comment: unable to assess at this time Review of Systems Review of Systems: Unobtainable due to cognitive status Physical Exam Constitutional: well developed, well nourished, + acute distress (mild distress on bipap, with anxiety) and + altered mental status Eyes: EOM intact bilaterally ENMT: Ears: no external ear abnormality Nose: no external nose abnormality Mouth: + dry oral mucous membranes Neck: no nuchal rigidity Respiratory: normal respiratory effort Auscultation: + diminished lung sounds and + crackles (fine, diffuse posteriorly) Cardiovascular: Rate/Rhythm: regular rate and regular rhythm Heart Sounds: normal S1 and normal S2 Extremities: no edema Gastrointestinal (Abdomen): Inspection/Auscultation: normal bowel sounds Percussion/Palpation: abdomen soft; abdomen nontender Musculoskeletal: Extremities: + abnormal strength (east, restless, in hand mitts BL) Skin: no rashes, warm and dry Neurologic: no tremor; speaking but not comprehensibly (difficult to evaluate w/ bipap) Psychiatric: Orientation: alert and oriented to person; + not oriented to place, + not oriented to time and + uncooperative Eye Contact: good eye contact Affect: + anxious affect Genitourinary: heredia w/ some urine Results & Data ([facility]) Vital Signs (Past 12 Hours) Vital Signs Temp Pulse Pulse Resp BP Pulse Ox 12/15/20 11:12 88 22 92 12/15/20 08:15 88 26 H 90 12/15/20 06:37 83 12/15/20 05:31 75 12/15/20 04:00 36.5 C 92 H 24 162/85 H 91 12/15/20 02:11 26 H 92 12/15/20 00:00 36.4 C L 77 22 136/73 91 Laboratory Results 12/15/20 09:45 12/15/20 06:38 Diagnostic Findings cxr - hazy airspace opacities pelvis XR > no frx
[2020-12-15] MEDS: DOXYCYCLINE HYCLATE 100 MG in DEXTROSE 5% 100 ML IV SCH ×2 (12:00→22:03)
--- NOTE | 2020-12-15 13:26 | Hospitalist Progress Note ---
Date of Service December 15, 2020 Assessment & Plan (1) Acute respiratory failure with hypoxia: (2) Sepsis: (3) Pneumonia due to COVID-19 virus: Plan: 85-year-old female who has significant past medical history of depression with anxiety, chronic interstitial cystitis, HLD, cerebral vascular disease, somatization, IBS who presents to ER secondary to altered mental status x2 days. Pt meets Sepsis criteria on admission 2/2 to wbc 13k, tachypnea, tachycardia Source: Covid PNA and possible UTI Blood cultures negative so far Received IV rocephin in ED Was started on LR @ 100cc/hr - no bolus 2/2 to initial concern for volume overload and in setting of covid-19 ESR 82, CRP 29.2, procalcitonin 0.58 Urine culture growing Enterococcus and Citrobacter both sensitive to ciprofloxacin. Will change antibiotic to Cipro Currently on BiPAP. Continue dexamethasone. Remdesivir not started due to renal function. Albuterol neb as needed MRSA screen negative IV pepcid for GI prophylaxis Keep NPO while on BIPAP Get Critical care consult DDimer is markedly elevated today. Empirical heparin drip started due to persistent hypoxia with respiratory support, increased DDimer, inability to do CT PE due to renal function (4) Acute metabolic encephalopathy: Plan: Multi factorial in setting of sepsis, covid-19, UTI, YUMIKO and hypernatremia (5) UTI (urinary tract infection): Plan: UA concerning for UTI Urine culture growing enterococcus and citrobacter Change to ciprofloxacin (6) Elevated troponin: Plan: Initial trop 0.095 no c/o chest pain, ecg w/o st t wave abnormality likely demand ischemia in setting of yumiko and hypoxia (7) YUMIKO (acute kidney injury): Plan: Baseline cr ~ 1.0 bun/cr 51 and 1.90 Renal function improving with creatinine of 1.58 today Continue to monitor Avoid nephrotoxins (8) Metabolic acidosis: Plan: likely multifactorial in setting of YUMIKO, lactic acidosis, electrolyte derangements, acute resp failure obtain abg (9) Lactic acidosis: Plan: LA 2.8, likely multifactorial in setting of possible sepsis, hypoxia and yumiko continue IVF, cycle Lactic acidosis resolved (10) Hypernatremia: Plan: likely 2/2 to GI loss and poor intake Worsening Na 150 today Started IV D5W Nephro consult (11) Hypokalemia: Plan: K is 3.3 today Replete and monitor (12) Pre-diabetes: Plan: a1c 5.9 monitor accu checks given dexamethasone administration if bsg consistently elevated add insulin coverage (13) DVT prophylaxis: Plan: SQ Heparin 7500 Q8hr per covid protocol Dipso: PCU PCP: Genna Astorgar DNR/DNI with guarded prognosis Plan: Called and updated him He maintains DNR/DNI code status Admission and Anticipated Discharge Date Admission Date: December 13, 2020 Subjective 85-year-old woman with history of depression, anxiety, chronic interstitial c ystitis, hyperlipidemia, cerebrovascular disease, IBS who presented to the ER for altered mental status for 2 days. Being managed for sepsis, acute respiratory failure with hypoxia secondary to COVID-19 pneumonia. Patient seen and examined today Difficult obtaining review of systems due to significant confusion Currently on BiPAP Review of Systems Review of Systems: Unobtainable due to cognitive status Physical Exam Constitutional: Confused elderly woman Eyes: PERRL, conjunctivae normal, anicteric sclerae ENMT: On BIPAP Respiratory: Diminished breath sounds, BIPAP Cardiovascular: RRR S1 S2 Gastrointestinal (Abdomen): normal bowel sounds, soft, nontender, no hepatosplenomegaly Musculoskeletal: No pedal edema Moves all extremities Neurologic: Confused. Awake alert. Does not follow commands. Moves all extremities spontaneously Results & Data Results & Data ([facility]) Vital Signs (Past 12 Hours) Vital Signs Temp Pulse Pulse Resp BP Pulse Ox 12/15/20 11:30 36.7 C 81 19 153/84 H 92 12/15/20 11:12 88 22 92 12/15/20 08:15 88 26 H 90 12/15/20 06:37 83 12/15/20 05:31 75 12/15/20 04:00 36.5 C 92 H 24 162/85 H 91 12/15/20 02:11 26 H 92 Laboratory Results Abnormal lab results 12/14/20 12/15/20 12/15/20 Range/Units 16:33 06:38 06:38 WBC 14.37 H (4.8-10.8) K/uL RBC 3.41 L (4.2-5.4) M/uL Hgb 10.5 L (12.0-16.0) g/dL Hct 30.4 L (37-47) % RDW Std Deviation 48.5 H (36.4-46.3) fL RDW Coeff of Sid 14.8 H (11.5-14.5) % MPV 10.9 H (7.4-10.4) fL Neut # (Auto) (1.4-6.5) K/uL Immature Gran # (Auto) (0.00-0.02) K/uL Absolute Nucleated RBC (0-0) K/uL PT (9.0-12.0) Seconds INR (0.9-1.1) APTT (21.0-31.0) Seconds D-Dimer 59777 H* (0-500) ug/L FEU Sodium 148 H (136-145) mmol/L Potassium (3.5-5.1) mmol/L Chloride (98-107) mmol/L Carbon Dioxide (21-32) mmol/L BUN (7-18) mg/dl Creatinine (0.6-1.2) mg/dl BUN/Creatinine Ratio (10-20) Glucose (70-99) mg/dl POC Glucose (70-99) mg/dl C-Reactive Protein (0-0.29) mg/dl Albumin (3.4-5.0) gm/dl Globulin (2.5-4.0) gm/dl Albumin/Globulin Ratio (0.9-2) 12/15/20 12/15/20 12/15/20 Range/Units 06:38 09:45 09:45 WBC 14.12 H (4.8-10.8) K/uL RBC 3.40 L (4.2-5.4) M/uL Hgb 10.4 L (12.0-16.0) g/dL Hct 30.6 L (37-47) % RDW Std Deviation 48.8 H (36.4-46.3) fL RDW Coeff of Sid 14.8 H (11.5-14.5) % MPV (7.4-10.4) fL Neut # (Auto) 12.02 H (1.4-6.5) K/uL Immature Gran # (Auto) 0.24 H (0.00-0.02) K/uL Absolute Nucleated RBC 0.03 H (0-0) K/uL PT 13.1 H (9.0-12.0) Seconds INR 1.3 H (0.9-1.1) APTT > 139.0 H* (21.0-31.0) Seconds D-Dimer (0-500) ug/L FEU Sodium 150 H (136-145) mmol/L Potassium 3.4 L (3.5-5.1) mmol/L Chloride 122 H (98-107) mmol/L Carbon Dioxide 20 L (21-32) mmol/L BUN 50 H (7-18) mg/dl Creatinine 1.41 H (0.6-1.2) mg/dl BUN/Creatinine Ratio 35.5 H (10-20) Glucose 105 H (70-99) mg/dl POC Glucose (70-99) mg/dl C-Reactive Protein 14.70 H (0-0.29) mg/dl Albumin 2.1 L (3.4-5.0) gm/dl Globulin 4.9 H (2.5-4.0) gm/dl Albumin/Globulin Ratio 0.4 L (0.9-2) 12/15/20 12/15/20 12/15/20 Range/Units 13:31 13:31 13:34 WBC (4.8-10.8) K/uL RBC (4.2-5.4) M/uL Hgb (12.0-16.0) g/dL Hct (37-47) % RDW Std Deviation (36.4-46.3) fL RDW Coeff of Sid (11.5-14.5) % MPV (7.4-10.4) fL Neut # (Auto) (1.4-6.5) K/uL Immature Gran # (Auto) (0.00-0.02) K/uL Absolute Nucleated RBC (0-0) K/uL PT (9.0-12.0) Seconds INR (0.9-1.1) APTT > 139.0 H* (21.0-31.0) Seconds D-Dimer (0-500) ug/L FEU Sodium 149 H (136-145) mmol/L Potassium 3.3 L (3.5-5.1) mmol/L Chloride 116 H (98-107) mmol/L Carbon Dioxide (21-32) mmol/L BUN 48 H (7-18) mg/dl Creatinine 1.58 H (0.6-1.2) mg/dl BUN/Creatinine Ratio 30.6 H (10-20) Glucose 195 H (70-99) mg/dl POC Glucose 170 H (70-99) mg/dl C-Reactive Protein (0-0.29) mg/dl Albumin (3.4-5.0) gm/dl Globulin (2.5-4.0) gm/dl Albumin/Globulin Ratio (0.9-2)
[2020-12-15 14:12] LABS: Partial Thromboplastin Ratio > 5.3
[2020-12-15 14:13] LABS: BUN Creatinine Ratio 30.6 (10-20); Creatinine Clr Calc Pharmacy 28.3 ml/min; Est GFR (African American) 34.2 ml/min; Est GFR (Non-African American) 29.5 ml/min; Potassium 3.3 mmol/L (3.5-5.1)
[2020-12-15 14:16] LABS: Partial Thromboplastin Time > 139.0 Seconds (21.0-31.0)
--- NOTE | 2020-12-15 15:10 | Palliative Care Consultation ---
Date of Consultation December 15, 2020 Assessment & Plan (1) Agitation: She is vulnerable for hospital delirium with her dementia, particularly with sepsis and in isolation. Will discuss options for relief with Dr. Kirkland. Could consider risperdal or IV lorazepam. (2) Palliative care encounter: I talked with Mr. Boone by phone. He is currently awaiting results of his covid test. He tells me that Janet had not been doing well at home and had a caregiver helping them with her care. He notes particularly that her appetite was poor. He spoke with Dr. Kirkland earlier today and has an understanding of how serious her illness is. He is aware that she is on bipap. We talked about whether Janet had ever expressed any thoughts about what she would want for her care. He told me that they really didn't talk much about that but that she did say that she was surprised that she lived until age 85. We discussed continuing current level of care with the understanding that her prognosis is poor versus shift of focus to comfort directed care. He feels that she would want a more comfort directed approach. He would like to see her if possible and we discussed possible options pending the results of his covid test. For now, he would like to continue current level of care. We would not escalate to intubation if her respiratory status declines. We will discuss further tomorrow when he has covid results and determine plan of care. (3) Sepsis: (4) Pneumonia due to COVID-19 virus: (5) Acute metabolic encephalopathy: History of Present Illness Reason for Consultation: goals of care Requesting Physician: Dr. Kirkland Attending Physician: Eloisa Kirkland MD History of Present Illness 85 yo lady with dementia who "wasn't functioning very well" per her . He felt that she did not recognize him. She was able to ambulate with assistance and did feed herself but had poor appetite. She was admitted with increased confusion, lethargy and diarrhea. She also has hypernatremia and is being followed by nephrology. She has also had markedly elevated D dimer and is on heparin infusion at this time. She has been confused and agitated at times and has pulled out IV access. She is currently on bipap. She is awake and alert but confused. She answers "not right now" when asked if having pain. She answers no when asked if she were feeling short of breath. She is restless and picking at sheets. Allergies Allergy/AdvReac Type Severity Reaction Status Date / Time Penicillins Allergy Severe SWELLING Verified 12/13/20 08:20 OF THE FACE Sulfa (Sulfonamide Allergy Severe Hives Verified 12/13/20 08:20 Antibiotics) naproxen Allergy Intermediate RASH Verified 12/13/20 08:20 paroxetine Allergy Intermediate MUSCLE PAIN Verified 12/13/20 08:20 tapentadol Allergy Mild SKIN Verified 12/13/20 08:20 IRRITATION codeine AdvReac Mild DROWSINESS Verified 12/13/20 08:20 Home Medications Medication Instructions Recorded Confirmed Type Lactobacills gasseri-Bifidobac 1 cap PO DAILY 12/13/20 12/13/20 History bifidum,longum 1.5 billion cell capsule (in[employer]) Multiple Minerals Vitamin 1 tab PO DAILY 12/13/20 12/13/20 History Prevagen 10 mg PO DAILY 12/13/20 12/13/20 History Zantac 150mg Tablet 150 mg PO BID 12/13/20 12/13/20 History albuterol sulfate 90 mcg/actuation 1 inh INHALATION QID PRN 12/13/20 12/13/20 History aerosol inhaler (ProAir HFA) cholecalciferol (vitamin D3) 125 125 mcg PO DAILY 12/13/20 12/13/20 History mcg (5,000 unit) tablet (Vitamin D3) conjugated estrogens 0.625 mg 0.625 mg PO DAILY 12/13/20 12/13/20 History tablet (Premarin) cyanocobalamin (vitamin B-12) 500 500 mcg PO DAILY 12/13/20 12/13/20 History mcg tablet (Vitamin B-12) diclofenac sodium 50 mg 50 mg PO TID PRN 12/13/20 12/13/20 History tablet,delayed release fluocinonide 0.05 % topical 1 applic TOPICAL BID PRN 12/13/20 12/13/20 History solution garlic 1,000 mg capsule (garlic 1,000 mg PO DAILY 12/13/20 12/13/20 History oil) hydroxyzine HCl 10 mg tablet 10 mg PO Q6H PRN 12/13/20 12/13/20 History magnesium 250 mg tablet 250 mg PO DAILY 12/13/20 12/13/20 History methenamine-sodium salicylate 162 1 tab PO DAILY PRN 12/13/20 12/13/20 History mg-162.5 mg tablet (Cystex Plus (methenamine-sodium salicylate)) metronidazole 0.75 % topical cream 1 applic TOPICAL BID PRN 12/13/20 12/13/20 History (MetroCream) polyethylene glycol 3350 17 17 g PO DAILY 12/13/20 12/13/20 History gram/dose oral powder (Miralax) senna-fennel tablet 1 tab PO DAILY 12/13/20 12/13/20 History Patient History Medical History Cerebrovascular disease Chronic interstitial cystitis Depression with anxiety Diverticulitis Surgical History H/O: hysterectomy History of appendectomy History of cystoscopy History of hemorrhoidectomy History of hip replacement Left History of oophorectomy History of partial colectomy History of tubal ligation S/P tonsillectomy and adenoidectomy Family History Brother Heart disease Father Alcohol abuse Mother CHF (congestive heart failure) Social History Smoking Status: Never smoker Hx Alcohol Use: No Hx Substance Use: No Preferred Language: Arabic Communication Ability: Effective Communication Ability Comment: pt non-verbal at this time, moans in response marital status: Current Living Situation: Spouse Feels Safe at Home: Yes Assistive Devices: Cane and Walker Assistive Devices Comment: unable to assess at this time Review of Systems Review of Systems: Lizella Symptom Assessment Scale Pain 0/3 Dyspnea 1/3 Fatigue 2/3 Drowsiness 0/3 Anxiety 2/3 Palliative Performance Score 30% Physical Exam Constitutional: + ill appearing and + altered mental status Respiratory: no labored breathing on bipap FiO2 100% Cardiovascular: Rate/Rhythm: regular rate and regular rhythm Neurologic: moves all extremities, awake and + confused Speech / Cognition: + abnormal cognition Results & Data ([facility]) Vital Signs (Past 12 Hours) Vital Signs Temp Pulse Pulse Resp BP Pulse Ox 12/15/20 11:30 98.1 F 81 19 153/84 H 92 12/15/20 11:12 88 22 92 12/15/20 08:15 88 26 H 90 12/15/20 06:37 83 12/15/20 05:31 75 12/15/20 04:00 97.7 F 92 H 24 162/85 H 91 PG Care Time/CCT Total # of Minutes Spent Total Time Spent: 75 Total Time Spent with Patient: Total time spent is greater than 50% in coordination of care (as documented) at patient's floor/unit and/or counseling patient: symptom management, goals of care, coordination of care, family education and support Coding Level of Care Code 42200 Initial Inpt Care Lvl 3 Diagnoses Palliative care encounter Z51.5 Sepsis A41.9 Pneumonia due to COVID-19 virus U07.1; J12.82 Acute metabolic encephalopathy G93.41 Agitation R45.1
[2020-12-15] MEDS: POTASSIUM ACETATE 10 MEQ in 0.9 % SODIUM CHLORIDE 100 ML IV SCH ×2 (16:08→17:22)
[2020-12-15] MEDS ORDERED: LORazepam 0.5 MG/1 ML VIAL IV PRN (16:22)
[2020-12-15 16:29] LABS: Partial Thromboplastin Ratio > 5.3
[2020-12-15 16:32] LABS: Partial Thromboplastin Time > 139.0 Seconds (21.0-31.0)
--- NOTE | 2020-12-15 17:45 | Pulmonary Consultation ---
Date of Consultation December 15, 2020 Assessment & Plan (1) Pneumonia due to COVID-19 virus: (2) Acute respiratory failure with hypoxia: Chest x-ray 2020-12-05 personally reviewed: Portable film, minimal blunting of the right costophrenic angle, patchy nodular opacities appreciated bilaterally --Acute hypoxic respiratory failure Secondary to multilobar COVID-19 pneumonia COVID-19 PCR positive CRP 14.7 Procalcitonin 0.42 Continue with O2 supplementation to keep oxygen saturation between 90-92%. Awake proning will be helpful Continue with incentive spirometry Continue with flutter valve. Recommend patient to be kept euvolemic to negative balance Plan: I would like the patient to be euvolemic to negative balance but because of the hyponatremia patient will be getting D5 water At the time of examination patient was saturating 95% on 80% FiO2 on BiPAP 12/6 I went down to 60% and she was still saturating well. She did have mittens on trying to take the BiPAP off I will increase the dexamethasone to 10 mg on a daily basis If the CRP is still elevated tomorrow I will start her on baricitinib Incentive spirometry and flutter valve will be beneficial but because of the patient underlying dementia it will be a tough task. Case was discussed with RN as well as Dr Kirkland Please note the above document was generated using voice recognition software. It may contain grammatical, syntax or spelling errors.Any formal questions or concerns about the content, text or information contained within the body of this dictation should be directly addressed to the provider for clarification. History of Present Illness Attending Physician: Eloisa Kirkland MD History of Present Illness 85-year-old female past medical history of dementia, dyslipidemia, depression with anxiety, IBS presented to the self altered mental status Patient was found to be Covid positive She was also hyponatremic Pulmonary were consulted for increasing oxygen need At the time of examination patient had mittens on. Patient's nurse was also in the room She was on BiPAP 12/6 80% saturating 95% I went down to 60% she was still saturating 92% as well as previous H&P She was actively trying to take the mask off Has been afebrile in the hospital Allergies Allergy/AdvReac Type Severity Reaction Status Date / Time Penicillins Allergy Severe SWELLING Verified 09/28/21 08:20 OF THE FACE Sulfa (Sulfonamide Allergy Severe Hives Verified 12/13/20 08:20 Antibiotics) naproxen Allergy Intermediate RASH Verified 12/13/20 08:20 paroxetine Allergy Intermediate MUSCLE PAIN Verified 12/13/20 08:20 tapentadol Allergy Mild SKIN Verified 12/13/20 08:20 IRRITATION codeine AdvReac Mild DROWSINESS Verified 12/13/20 08:20 Home Medications Medication Instructions Recorded Confirmed Type Lactobacills gasseri-Bifidobac 1 cap PO DAILY 12/13/20 12/13/20 History bifidum,longum 1.5 billion cell capsule ([employer]) Multiple Minerals Vitamin 1 tab PO DAILY 12/13/20 12/13/20 History Prevagen 10 mg PO DAILY 12/13/20 12/13/20 History Zantac 150mg Tablet 150 mg PO BID 12/13/20 12/13/20 History albuterol sulfate 90 mcg/actuation 1 inh INHALATION QID PRN 12/13/20 12/13/20 History aerosol inhaler (ProAir HFA) cholecalciferol (vitamin D3) 125 125 mcg PO DAILY 12/13/20 12/13/20 History mcg (5,000 unit) tablet (Vitamin D3) conjugated estrogens 0.625 mg 0.625 mg PO DAILY 12/13/20 12/13/20 History tablet (Premarin) cyanocobalamin (vitamin B-12) 500 500 mcg PO DAILY 12/13/20 12/13/20 History mcg tablet (Vitamin B-12) diclofenac sodium 50 mg 50 mg PO TID PRN 12/13/20 12/13/20 History tablet,delayed release fluocinonide 0.05 % topical 1 applic TOPICAL BID PRN 12/13/20 12/13/20 History solution garlic 1,000 mg capsule (garlic 1,000 mg PO DAILY 12/13/20 12/13/20 History oil) hydroxyzine HCl 10 mg tablet 10 mg PO Q6H PRN 12/13/20 12/13/20 History magnesium 250 mg tablet 250 mg PO DAILY 12/13/20 12/13/20 History methenamine-sodium salicylate 162 1 tab PO DAILY PRN 12/13/20 12/13/20 History mg-162.5 mg tablet (Cystex Plus (methenamine-sodium salicylate)) metronidazole 0.75 % topical cream 1 applic TOPICAL BID PRN 12/13/20 12/13/20 History (MetroCream) polyethylene glycol 3350 17 17 g PO DAILY 12/13/20 12/13/20 History gram/dose oral powder (Miralax) senna-fennel tablet 1 tab PO DAILY 12/13/20 12/13/20 History Patient History Medical History Cerebrovascular disease Chronic interstitial cystitis Depression with anxiety Diverticulitis Surgical History H/O: hysterectomy History of appendectomy History of cystoscopy History of hemorrhoidectomy History of hip replacement Left History of oophorectomy History of partial colectomy History of tubal ligation S/P tonsillectomy and adenoidectomy Family History Brother Heart disease Father Alcohol abuse Mother CHF (congestive heart failure) Social History Smoking Status: Never smoker Hx Alcohol Use: No Hx Substance Use: No Preferred Language: Pashto Communication Ability: Effective Communication Ability Comment: pt non-verbal at this time, moans in response marital status: Current Living Situation: Spouse Feels Safe at Home: Yes Assistive Devices: Cane and Walker Assistive Devices Comment: unable to assess at this time Review of Systems Review of Systems: Unobtainable due to mental health condition and Unobtainable due to cognitive status Physical Exam Physical Exam: Constitutional: No acute distress HEENT: EOMI, PERRLA Respiratory system: Decreased antibiotic, no wheeze, no rhonchi, positive crackles bilaterally CVS: S1-S2 positive, no murmurs or gallops Abdomen: Soft, nontender, nondistended, positive bowel sounds x4 Extremities: +2 pulses bilaterally radialis/ dorsalis pedis, no cyanosis, no edema Neuro: Awake alert oriented only to self Psych: Restless mood G/U: Positive Gamez Skin: no rashes, warm and dry Lymphatic: no cervical or axillary lymphadenopathy Results & Data Results & Data ([facility]) Vital Signs (Past 12 Hours) Vital Signs Temp Pulse Pulse Resp BP Pulse Ox 12/15/20 16:13 34.9 C L 83 20 137/80 94 12/15/20 15:17 87 87 22 91 12/15/20 14:19 72 12/15/20 11:30 36.7 C 81 19 153/84 H 92 12/15/20 11:12 88 22 92 12/15/20 08:15 88 26 H 90 12/15/20 06:37 83 12/15/20 09:45 12/15/20 13:31 PG Care Time/CCT Total # of Minutes Spent Total Time Spent with Patient: Total time spent is greater than 50% in coordination of care (as documented) at patient's floor/unit and/or counseling patient: Coding Level of Care Code 84456 Initial Inpt Care Lvl 3 Diagnoses Pneumonia due to COVID-19 virus U07.1; J12.82 Acute respiratory failure with hypoxia J96.01
[2020-12-15] MEDS: POTASSIUM CHLORIDE 40 MEQ in DEXTROSE 5% 1,000 ML IV SCH (18:42)
[2020-12-15 18:49] LABS: Partial Thromboplastin Ratio 3.4
[2020-12-15 18:57] LABS: Partial Thromboplastin Time 89.7 Seconds (21.0-31.0)
[2020-12-15] MEDS ORDERED: CIPROFLOXACIN / D5W 400 MG/200 ML BAG IV SCH (20:00)
[2020-12-15 20:59] LABS: Partial Thromboplastin Ratio 2.9
[2020-12-15 21:04] LABS: Partial Thromboplastin Time 76.1 Seconds (21.0-31.0)
[2020-12-15 22:56] LABS: Partial Thromboplastin Ratio 2.2
[2020-12-16 01:25] LABS: Partial Thromboplastin Ratio 3.2
[2020-12-16 01:28] LABS: Partial Thromboplastin Time 84.3 Seconds (21.0-31.0)
[2020-12-16] MEDS: POTASSIUM CHLORIDE 40 MEQ in DEXTROSE 5% 1,000 ML IV SCH (04:06)
[2020-12-16 07:42] LABS: Hemoglobin 10.8 g/dL (12.0-16.0); Mean Corpuscular Hemoglobin 30.7 pg (25-34); Mean Corpuscular Hgb Conc 33.8 g/dL (32-36); Mean Corpuscular Volume 90.9 fL (80-100); Mean Platelet Volume 10.6 fL (7.4-10.4); Nucleated RBC # (auto) 0.02 K/uL (0-0); Nucleated RBC % (auto) 0.2 %; Platelet Count 313 K/uL (130-400); RDW Coefficient of Variation 14.8 % (11.5-14.5); RDW Standard Deviation 48.9 fL (36.4-46.3); Red Blood Count 3.52 M/uL (4.2-5.4); White Blood Count 14.29 K/uL (4.8-10.8)
[2020-12-16] MEDS: HEPARIN SODIUM/DEXTROSE 25,000 UNITS/500 ML BAG IV SCH ×2 (07:46→10:01)
[2020-12-16] MEDS: dexAMETHasone 10 MG in SYRINGE 0 ML IV SCH (07:46)
[2020-12-16] MEDS: FAMOTIDINE 20 MG in SYRINGE 3 ML IV SCH (07:46)
[2020-12-16 08:15] LABS: Partial Thromboplastin Ratio 5.1
[2020-12-16 08:30] LABS: Albumin Globulin Ratio 0.4 (0.9-2); Albumin Level 2.1 gm/dl (3.4-5.0); BUN Creatinine Ratio 31.5 (10-20); Calcium 8.8 mg/dl (8.5-10.1); Creatinine Clr Calc Pharmacy 33.5 ml/min; Est GFR (African American) 45.4 ml/min; Est GFR (Non-African American) 39.2 ml/min; Globulin 5.1 gm/dl (2.5-4.0); Magnesium 2.1 mg/dl (1.8-2.4); Potassium 4.2 mmol/L (3.5-5.1); Total Protein 7.2 gm/dl (6.4-8.2)
[2020-12-16 09:05] LABS: D Dimer 5120 ug/L FEU (0-500)
--- NOTE | 2020-12-16 09:56 | Hospitalist Progress Note ---
Date of Service December 16, 2020 Assessment & Plan (1) Acute respiratory failure with hypoxia: (2) Sepsis: (3) Pneumonia due to COVID-19 virus: Plan: 85-year-old female who has significant past medical history of depression with anxiety, chronic interstitial cystitis, HLD, cerebral vascular disease, somatization, IBS who presents to ER secondary to altered mental status x2 days. Pt meets Sepsis criteria on admission 2/2 to wbc 13k, tachypnea, tachycardia Source: Covid PNA and possible UTI Blood cultures negative so far Received IV rocephin in ED ESR 82, CRP 29.2, procalcitonin 0.58 Urine culture growing Enterococcus and Citrobacter both sensitive to cip rofloxacin. Antibiotics was changed to ciprofloxacin Currently on BiPAP. On dexamethasone Remdesivir not started due to renal function. production control specialist evaluation appreciated. Patient was on heparin drip from peripheral anticoagulation for possible PE as CT PE cannot be obtained due to renal function. hedis specialist had further conversations with patient's family. They decided to discontinue active treatment and pursue comfort care based on patient previous wishes Comfort care orders placed by Palliative team (4) Acute metabolic encephalopathy: Plan: Multi factorial in setting of sepsis, covid-19, UTI, YUMIKO and hypernatremia (5) UTI (urinary tract infection): Plan: UA concerning for UTI Urine culture growing enterococcus and citrobacter (6) Elevated troponin: Plan: Initial trop 0.095 no c/o chest pain, ecg w/o st t wave abnormality likely demand ischemia in setting of yumiko and hypoxia (7) YUMIKO (acute kidney injury): Plan: Baseline cr ~ 1.0 bun/cr 51 and 1.90 Renal function improving with creatinine of 1.25 today Risk Control Field Representative recommendations appreciated (8) Metabolic acidosis: Plan: likely multifactorial in setting of YUMIKO, lactic acidosis, electrolyte derangements, acute resp failure obtain abg (9) Lactic acidosis: Plan: LA 2.8, likely multifactorial in setting of possible sepsis, hypoxia and yumiko continue IVF, cycle Lactic acidosis resolved (10) Hypernatremia: Plan: likely 2/2 to GI loss and poor intake Was started on D5W, Na is 142 today (11) Hypokalemia: Plan: Repleted K is 4.2 today (12) Pre-diabetes: Plan: a1c 5.9 Plan: Discussed with museum specialist Comfort care orders already placed Transfer to med surg Admission and Anticipated Discharge Date Admission Date: December 13, 2020 Subjective 85-year-old woman with history of depression, anxiety, chronic interstitial cystitis, hyperlipidemia, cerebrovascular disease, IBS who presented to the ER for altered mental status for 2 days. Being managed for sepsis, acute respiratory failure with hypoxia secondary to COVID-19 pneumonia. Patient seen and examined today Difficult obtaining review of systems due to confusion Currently on BiPAP Based on my conversation with family and that of palliative care team with patient and , patient's family is leaning towards comfort measures based on patient's wishes. Review of Systems Review of Systems: Unobtainable due to cognitive status Physical Exam Constitutional: Confused elderly woman on BiPAP Eyes: PERRL, conjunctivae normal, anicteric sclerae Respiratory: Diminished breath sounds On BiPAP Cardiovascular: RRR S1 S2 Gastrointestinal (Abdomen): normal bowel sounds, soft, nontender, no hepatosplenomegaly Musculoskeletal: Trace pedal edema Neurologic: Awake, alert but Confused. Does not follow commands Results & Data Results & Data ([facility]) Vital Signs (Past 12 Hours) Vital Signs Temp Pulse Pulse Resp BP Pulse Ox 12/16/20 08:29 82 24 95 12/16/20 07:48 36.4 C L 76 20 123/72 94 12/16/20 04:22 36.3 C L 75 20 123/73 95 12/16/20 02:40 59 L 17 94 12/16/20 00:11 69 12/15/20 23:20 81 26 H 92 12/15/20 22:32 36.4 C L 81 20 111/61 91 Laboratory Results Abnormal lab results 12/15/20 12/15/20 12/15/20 Range/Units 13:31 13:31 15:40 WBC (4.8-10.8) K/uL RBC (4.2-5.4) M/uL Hgb (12.0-16.0) g/dL Hct (37-47) % RDW Std Deviation (36.4-46.3) fL RDW Coeff of Sid (11.5-14.5) % MPV (7.4-10.4) fL Absolute Nucleated RBC (0-0) K/uL APTT > 139.0 H* > 139.0 H* (21.0-31.0) Seconds D-Dimer (0-500) ug/L FEU Sodium 149 H (136-145) mmol/L Potassium 3.3 L (3.5-5.1) mmol/L Chloride 116 H (98-107) mmol/L BUN 48 H (7-18) mg/dl Creatinine 1.58 H (0.6-1.2) mg/dl BUN/Creatinine Ratio 30.6 H (10-20) Glucose 195 H (70-99) mg/dl POC Glucose (70-99) mg/dl Phosphorus (2.5-4.9) mg/dl AST (15-37) U/L C-Reactive Protein (0-0.29) mg/dl Albumin (3.4-5.0) gm/dl Globulin (2.5-4.0) gm/dl Albumin/Globulin Ratio (0.9-2) 12/15/20 12/15/20 12/15/20 Range/Units 16:20 18:12 20:17 WBC (4.8-10.8) K/uL RBC (4.2-5.4) M/uL Hgb (12.0-16.0) g/dL Hct (37-47) % RDW Std Deviation (36.4-46.3) fL RDW Coeff of Sid (11.5-14.5) % MPV (7.4-10.4) fL Absolute Nucleated RBC (0-0) K/uL APTT 89.7 H* 76.1 H* (21.0-31.0) Seconds D-Dimer (0-500) ug/L FEU Sodium (136-145) mmol/L Potassium (3.5-5.1) mmol/L Chloride (98-107) mmol/L BUN (7-18) mg/dl Creatinine (0.6-1.2) mg/dl BUN/Creatinine Ratio (10-20) Glucose (70-99) mg/dl POC Glucose 191 H (70-99) mg/dl Phosphorus (2.5-4.9) mg/dl AST (15-37) U/L C-Reactive Protein (0-0.29) mg/dl Albumin (3.4-5.0) gm/dl Globulin (2.5-4.0) gm/dl Albumin/Globulin Ratio (0.9-2) 09/30/21 09/30/21 10/01/21 Range/Units 20:17 22:23 00:53 WBC (4.8-10.8) K/uL RBC (4.2-5.4) M/uL Hgb (12.0-16.0) g/dL Hct (37-47) % RDW Std Deviation (36.4-46.3) fL RDW Coeff of Sid (11.5-14.5) % MPV (7.4-10.4) fL Absolute Nucleated RBC (0-0) K/uL APTT 59.0 H* 84.3 H* (21.0-31.0) Seconds D-Dimer (0-500) ug/L FEU Sodium (136-145) mmol/L Potassium (3.5-5.1) mmol/L Chloride (98-107) mmol/L BUN (7-18) mg/dl Creatinine (0.6-1.2) mg/dl BUN/Creatinine Ratio (10-20) Glucose (70-99) mg/dl POC Glucose 216 H (70-99) mg/dl Phosphorus (2.5-4.9) mg/dl AST (15-37) U/L C-Reactive Protein (0-0.29) mg/dl Albumin (3.4-5.0) gm/dl Globulin (2.5-4.0) gm/dl Albumin/Globulin Ratio (0.9-2) 12/16/20 12/16/20 12/16/20 Range/Units 07:19 07:19 07:19 WBC 14.29 H (4.8-10.8) K/uL RBC 3.52 L (4.2-5.4) M/uL Hgb 10.8 L (12.0-16.0) g/dL Hct 32.0 L (37-47) % RDW Std Deviation 48.9 H (36.4-46.3) fL RDW Coeff of Sid 14.8 H (11.5-14.5) % MPV 10.6 H (7.4-10.4) fL Absolute Nucleated RBC 0.02 H (0-0) K/uL APTT (21.0-31.0) Seconds D-Dimer 5120 H* (0-500) ug/L FEU Sodium (136-145) mmol/L Potassium (3.5-5.1) mmol/L Chloride 110 H (98-107) mmol/L BUN 39 H (7-18) mg/dl Creatinine 1.25 H D (0.6-1.2) mg/dl BUN/Creatinine Ratio 31.5 H (10-20) Glucose 161 H (70-99) mg/dl POC Glucose (70-99) mg/dl Phosphorus 2.0 L (2.5-4.9) mg/dl AST 40 H (15-37) U/L C-Reactive Protein 13.00 H (0-0.29) mg/dl Albumin 2.1 L (3.4-5.0) gm/dl Globulin 5.1 H (2.5-4.0) gm/dl Albumin/Globulin Ratio 0.4 L (0.9-2) 12/16/20 Range/Units 07:19 WBC (4.8-10.8) K/uL RBC (4.2-5.4) M/uL Hgb (12.0-16.0) g/dL Hct (37-47) % RDW Std Deviation (36.4-46.3) fL RDW Coeff of Sid (11.5-14.5) % MPV (7.4-10.4) fL Absolute Nucleated RBC (0-0) K/uL APTT 133.0 H* (21.0-31.0) Seconds D-Dimer (0-500) ug/L FEU Sodium (136-145) mmol/L Potassium (3.5-5.1) mmol/L Chloride (98-107) mmol/L BUN (7-18) mg/dl Creatinine (0.6-1.2) mg/dl BUN/Creatinine Ratio (10-20) Glucose (70-99) mg/dl POC Glucose (70-99) mg/dl Phosphorus (2.5-4.9) mg/dl AST (15-37) U/L C-Reactive Protein (0-0.29) mg/dl Albumin (3.4-5.0) gm/dl Globulin (2.5-4.0) gm/dl Albumin/Globulin Ratio (0.9-2)
--- NOTE | 2020-12-16 10:17 | Nephrology Progress Note ---
Date of Service December 16, 2020 Assessment & Plan (1) YUMIKO (acute kidney injury): Plan: further improving and nearly resolved nonoliguric presumptive YUMIKO stage 1, favor prerenal process from sepsis > baseline creatinine approx 1.1; peak value 1.9 at admission, improved to 1.3 today >>>with bipap dependent respiratory failure, important to mobilize fluid where possible >> will give lasix 20 mg IV q8h; favoring respiratory optimization over renal function here -will also give 2 x 10 mEq K late this afternoon; likely to need daily -daily bmp -cont to avoid nephrotoxins -more lasix PRN respiratory mgt (2) Hypernatremia: Plan: resolved; stopped D5W -daily bmp Admission and Anticipated Discharge Date Admission Date: December 13, 2020 Subjective palliative eval'd pt given tenuous respiratory status; no escalation of care. Physical Exam Constitutional: well developed, well nourished, + acute distress (mild distress on bipap, with anxiety) and + altered mental status Eyes: EOM intact bilaterally ENMT: Ears: no external ear abnormality Nose: no external nose abnormality Mouth: + dry oral mucous membranes Neck: no nuchal rigidity Respiratory: normal respiratory effort Auscultation: + diminished lung sounds and + crackles (fine, diffuse posteriorly) Cardiovascular: Rate/Rhythm: regular rate and regular rhythm Heart Sounds: normal S1 and normal S2 Extremities: no edema Gastrointestinal (Abdomen): Inspection/Auscultation: normal bowel sounds Percussion/Palpation: abdomen soft; abdomen nontender Musculoskeletal: Extremities: + abnormal strength (east, restless, in hand mitts BL) Skin: no rashes, warm and dry Psychiatric: Orientation: alert and oriented to person; + not oriented to place, + not oriented to time and + uncooperative Eye Contact: good eye contact Affect: + anxious affect Results & Data ([facility]) Vital Signs (Past 12 Hours) Vital Signs Temp Pulse Pulse Resp BP Pulse Ox 12/16/20 08:29 82 24 95 12/16/20 07:48 36.4 C L 76 20 123/72 94 12/16/20 04:22 36.3 C L 75 20 123/73 95 12/16/20 02:40 59 L 17 94 12/16/20 00:11 69 12/15/20 23:20 81 26 H 92 12/15/20 22:32 36.4 C L 81 20 111/61 91 Laboratory Results 12/16/20 07:19 12/16/20 07:19
[2020-12-16] MEDS: DOXYCYCLINE HYCLATE 100 MG in DEXTROSE 5% 100 ML IV SCH (11:10)
--- NOTE | 2020-12-16 11:26 | Palliative Care Progress Note ---
Date of Service December 16, 2020 Assessment & Plan (1) Agitation: Plan: Improved with lorazepam. Would consider more regular dosing due to history of anxiety and increased distress in hospital covid environment with dementia. (2) Palliative care encounter: Plan: I spoke with Janet's daughter, Alo, as well as her Kalia on the phone. Unfortunately, Kalia has tested positive for covid. Both agree that Janet would want a comfort directed approach at this time. She has talked about dying for more than two years since she passed her 83rd birthday. They feel she would not want life prolonging measures. We discussed shift of focus to medications for comfort, removal of bipap and use of oxygen for comfort. They support this. They have requested that the [employer] channel be playing in her room if possible to provide comfort for her. Staff is aware. Other family members have been able to talk to Janet on the phone. Kalia will talk with her after bipap is removed. Their questions were answered . Contacted Dr. Kirkland. Orders will be adjusted to reflect family wish for comfort care. Discussed with RN. (3) Pneumonia due to COVID-19 virus: (4) Acute respiratory failure with hypoxia: (5) Acute metabolic encephalopathy: Admission and Anticipated Discharge Date Admission Date: December 13, 2020 Subjective Less agitated today with dose of ativan last night. Remains on bipap. Review of Systems Review of Systems: Unobtainable due to cognitive status and Other (bipap) [place] Symptom Assessment Scale Pain by observation 0/3 Dyspnea by observation 1/3 Palliative Performance Score 20% Physical Exam Constitutional: + ill appearing and + lethargic Respiratory: + uses accessory muscles Cardiovascular: Rate/Rhythm: regular rate and regular rhythm Neurologic: Speech / Cognition: + abnormal cognition Results & Data ([facility]) Vital Signs (Past 12 Hours) Vital Signs Temp Pulse Pulse Resp BP Pulse Ox 12/16/20 11:10 97.9 F 79 20 116/69 95 12/16/20 08:29 82 24 95 12/16/20 07:48 97.5 F L 76 20 123/72 94 12/16/20 04:22 97.3 F L 75 20 123/73 95 12/16/20 02:40 59 L 17 94 12/16/20 00:11 69 PG Care Time/CCT Total # of Minutes Spent Total Time Spent: 110 Total Time Spent with Patient: Total time spent is greater than 50% in coordination of care (as documented) at patient's floor/unit and/or counseling patient: symptom management, goals of care, family education and support, coordination of care Coding Level of Care Code 08772 Subseq Hosp Care Lvl 3 Diagnoses Agitation R45.1 Palliative care encounter Z51.5 Pneumonia due to COVID-19 virus U07.1; J12.82 Acute respiratory failure with hypoxia J96.01 Acute metabolic encephalopathy G93.41 Time Spent (min) 110
[2020-12-16] MEDS ORDERED: MoRPHine SULFATE 2 MG/ML CARP IV PRN (11:43)
[2020-12-16] MEDS: LORazepam 0.5 MG/1 ML VIAL IV SCH ×2 (12:22→17:09)
[2020-12-16] MEDS ORDERED: FUROSEMIDE 20 MG in SYRINGE 0 ML IV SCH (14:00)
--- NOTE | 2020-12-16 15:23 | Pulmonology Progress Note ---
Date of Service December 16, 2020 Assessment & Plan (1) Pneumonia due to COVID-19 virus: (2) Acute respiratory failure with hypoxia: Plan: Chest x-ray 2020-12-05 personally reviewed: Portable film, minimal blunting of the right costophrenic angle, patchy nodular opacities appreciated bilaterally --Acute hypoxic respiratory failure Secondary to multilobar COVID-19 pneumonia COVID-19 PCR positive CRP 14.7 Procalcitonin 0.42 Continue with O2 supplementation to keep oxygen saturation between 90-92%. Awake proning will be helpful Continue with incentive spirometry Continue with flutter valve. Recommend patient to be kept euvolemic to negative balance Plan: Family are deciding towards comfort measures for the patient I think that will be the right decision for the patient Keep the patient comfortable. Pulmonary will sign off. Please note the above document was generated using voice recognition software. It may contain grammatical, syntax or spelling errors.Any formal questions or concerns about the content, text or information contained within the body of this dictation should be directly addressed to the provider for clarification. Admission and Anticipated Discharge Date Admission Date: December 13, 2020 Subjective Case was discussed with RN. Patient is not in any acute distress She is actually on nasal cannula now on comfort measures. Review of Systems Review of Systems: Unobtainable due to mental health condition Physical Exam Physical Exam: Patient not examined due to coronavirus restrictions and attempts to minimize exposure to staff and consider PPE. Please refer to the hospitalist exam for complete details. Results & Data Results & Data ([facility]) Vital Signs (Past 12 Hours) Vital Signs Temp Pulse Pulse Resp BP Pulse Ox 12/16/20 15:16 64 12/16/20 13:17 68 92 12/16/20 11:36 71 19 94 12/16/20 11:10 36.6 C 79 20 116/69 95 12/16/20 08:29 82 24 95 12/16/20 07:48 36.4 C L 76 20 123/72 94 12/16/20 04:22 36.3 C L 75 20 123/73 95 12/16/20 07:19 12/16/20 07:19 PG Care Time/CCT Total # of Minutes Spent Total Time Spent with Patient: Total time spent is greater than 50% in coordination of care (as documented) at patient's floor/unit and/or counseling patient: Coding Level of Care Code 25176 Subseq Hosp Care Lvl 1 Diagnoses Pneumonia due to COVID-19 virus U07.1; J12.82 Acute respiratory failure with hypoxia J96.01
[2020-12-16] MEDS ORDERED: STAT IV Infusion **Titration per Protocol STA (16:11)
[2020-12-16] MEDS: POTASSIUM CHLORIDE / WTR 10 MEQ/100 ML PLCT IV SCH ×2 (16:43→21:18)
[2020-12-16] MEDS: MoRPHine SULF/NSS 250 MG/250 ML BTL IV SCH (17:30)
[2020-12-17] MEDS: LORazepam 0.5 MG/1 ML VIAL IV SCH ×5 (00:04→23:49)
--- NOTE | 2020-12-17 11:36 | Hospitalist Progress Note ---
Date of Service December 17, 2020 Assessment & Plan (1) Acute respiratory failure with hypoxia: (2) Sepsis: (3) Pneumonia due to COVID-19 virus: Plan: 85-year-old female who has significant past medical history of depression with anxiety, chronic interstitial cystitis, HLD, cerebral vascular disease, somatization, IBS who presents to ER secondary to altered mental status x2 days. Pt meets Sepsis criteria on admission 2/2 to wbc 13k, tachypnea, tachycardia Source: Covid PNA and possible UTI Blood cultures negative Received IV rocephin in ED ESR 82, CRP 29.2, procalcitonin 0.58 Urine culture growing Enterococcus and Citrobacter both sensitive to ciprofloxa becky. Antibiotics was changed to ciprofloxacin Was initially on BIPAP, dexamethasone Was on heparin drip from peripheral anticoagulation for possible PE as CT PE cannot be obtained due to renal function. promotions specialist had further conversations with patient's family. They decided to discontinue active treatment and pursue comfort care based on patient previous wishes Patient is currently on comfort measures and all active treatment discontinued by family request (4) Acute metabolic encephalopathy: Plan: Multi factorial in setting of sepsis, covid-19, UTI, YUMIKO and hypernatremia (5) UTI (urinary tract infection): Plan: UA concerning for UTI Urine culture growing enterococcus and citrobacter (6) Elevated troponin: (7) YUMIKO (acute kidney injury): (8) Metabolic acidosis: Plan: likely multifactorial in setting of YUMIKO, lactic acidosis, electrolyte derangements, acute resp failure obtain abg (9) Lactic acidosis: Plan: LA 2.8, likely multifactorial in setting of possible sepsis, hypoxia and yumiko Lactic acidosis resolved (10) Hypernatremia: Plan: likely 2/2 to GI loss and poor intake (11) Hypokalemia: (12) Pre-diabetes: Plan: a1c 5.9 Plan: Continue comfort care measures. Based on clinical deterioration, patient may soon. Discussed with RN to allow communication and visits with family as much as possible within hospital visitation guidelines Admission and Anticipated Discharge Date Admission Date: December 13, 2020 Subjective 85-year-old woman with history of depression, anxiety, chronic interstitial cystitis, hyperlipidemia, cerebrovascular disease, IBS who presented to the ER for altered mental status for 2 days. Being managed for sepsis, acute respiratory failure with hypoxia secondary to COVID-19 pneumonia. Patient seen and examined today Currently on comfort care Currently obtunded Review of Systems Review of Systems: Unobtainable due to reduced consciousness Physical Exam Constitutional: Elderly woman in no distress Obtunded Eyes: PERRL, conjunctivae normal, anicteric sclerae Respiratory: Reduced respiratory rate, shallow breathing Diminished breath sounds Cardiovascular: RRR. S1 S2 Gastrointestinal (Abdomen): normal bowel sounds, soft, nontender, no hepatosplenomegaly Musculoskeletal: No pedal edema Neurologic: Obtunded. Withdraws to pain Pupils miotic but reactive Genitourinary: Gamez in situ Results & Data Results & Data ([facility]) Vital Signs (Past 12 Hours) Vital Signs Temp Pulse Resp BP Pulse Ox 12/17/20 07:00 35.9 C L 60 8 L 119/78 92
[2020-12-18] MEDS: LORazepam 0.5 MG/1 ML VIAL IV SCH ×4 (06:11→23:59)
--- NOTE | 2020-12-18 11:46 | Hospitalist Progress Note ---
Date of Service December 18, 2020 Assessment & Plan (1) Acute respiratory failure with hypoxia: (2) Sepsis: (3) Pneumonia due to COVID-19 virus: Plan: 85-year-old female who has significant past medical history of depression with anxiety, chronic interstitial cystitis, HLD, cerebral vascular disease, somatization, IBS who presents to ER secondary to altered mental status x2 days. Pt meets Sepsis criteria on admission 2/2 to wbc 13k, tachypnea, tachycardia Source: Covid PNA and possible UTI Blood cultures negative Received IV rocephin in ED ESR 82, CRP 29.2, procalcitonin 0.58 Urine culture growing Enterococcus and Citrobacter both sensitive to ciprofloxa becky. Antibiotics was changed to ciprofloxacin Was initially on BIPAP, dexamethasone Was on heparin drip from peripheral anticoagulation for possible PE as CT PE cannot be obtained due to renal function. storage specialist had further conversations with patient's family. They decided to discontinue active treatment and pursue comfort care based on patient previous wishes Patient is currently on comfort measures and all active treatment discontinued by family request On morphine drip per Palliative team (4) Acute metabolic encephalopathy: Plan: Multi factorial in setting of sepsis, covid-19, UTI, YUMIKO and hypernatremia (5) UTI (urinary tract infection): Plan: UA concerning for UTI Urine culture growing enterococcus and citrobacter (6) Elevated troponin: (7) YUMIKO (acute kidney injury): (8) Metabolic acidosis: Plan: likely multifactorial in setting of YUMIKO, lactic acidosis, electrolyte derangements, acute resp failure obtain abg (9) Lactic acidosis: Plan: LA 2.8, likely multifactorial in setting of possible sepsis, hypoxia and yumiko Lactic acidosis resolved (10) Hypernatremia: Plan: likely 2/2 to GI loss and poor intake (11) Hypokalemia: (12) Pre-diabetes: Plan: a1c 5.9 Admission and Anticipated Discharge Date Admission Date: December 13, 2020 Subjective 85-year-old woman with history of depression, anxiety, chronic interstitial cystitis, hyperlipidemia, cerebrovascular disease, IBS who presented to the ER for altered mental status for 2 days. Being managed for sepsis, acute respiratory failure with hypoxia secondary to COVID-19 pneumonia. Patient seen and examined today Currently on comfort care Currently obtunded Review of Systems Review of Systems: Unobtainable due to reduced consciousness Physical Exam Constitutional: Elderly woman in no distress Eyes: PERRL, conjunctivae normal, anicteric sclerae Respiratory: Shallow breathing Diminished breath sounds Cardiovascular: RRR S1 S2 Gastrointestinal (Abdomen): normal bowel sounds, soft, nontender, no hepatosplenomegaly Musculoskeletal: No pedal edema Neurologic: Obtunded Results & Data Results & Data ([facility]) Vital Signs (Past 12 Hours) Vital Signs Temp Pulse Resp BP Pulse Ox 12/18/20 07:29 35.9 C L 90 6 L 100/58 L 91
--- NOTE | 2020-12-18 23:10 | Emergency Department Note ---
Impression & Plan Acute respiratory failure with hypoxia, Pneumonia due to COVID-19 virus, YUMIKO (acute kidney injury) ED Provider Note CHIEF COMPLAINT: AMS HISTORY OF PRESENT ILLNESS: This 85 yo female patient presents to the emergency department with her who states that she has been altered. Patient was found to have a difficult time breathing and he thought potentially febrile. Patient has not been vomiting. Patient was found to be hypoxic on room air by EMS at 72% by report. He works at the [employer] at [employer], and his daughter works as a business executive for [employer]. Patient has a history of dementia and does receive care from both and daughter. states that the patient has not been vaccinated. He denies any recent falls or closed head injuries. History is significantly limited due to the patient's dementia/altered mental status and poor history. REVIEW OF SYSTEMS: A review of systems was performed with positives and pertinent negatives listed in the history of present illness. 10 systems were reviewed and are otherwise negative. ALLERGIES: See below MEDICATIONS: See below PMH: See below SOCIAL HISTORY: See below PHYSICAL EXAM: Vital signs reviewed. General: Chronically ill-appearing 85-year-old female, in some respiratory difficulty, on BiPAP HEENT: No scleral icterus, PERRLA, neck supple. Atraumatic. Cardiovascular: Tachycardic but regular, no extra sounds Pulmonary: Coarse breath sounds bilaterally, increased work of breathing, on BiPAP. Abdomen: Soft, nontender, nondistended, positive bowel sounds. Musculoskeletal: Atraumatic, no peripheral edema. Neurologic: Patient somnolent but arousable. Essentially nonverbal unable to follow commands. Skin: Warm, dry, no rash EMERGENCY DEPARTMENT COURSE: This patient was evaluated and appeared to be in no significant distress. Patient was comfortable on BiPAP but did require 0.5 mg of Ativan. She was initially given Lasix 20 mg IV as she was felt to be suffering CHF clinically. She did seem to stabilize on BiPAP. Chest x-ray was performed and was felt to represent pulmonary edema. Patient's laboratory work reveals a prerenal state with a sodium of 152. Patient was then given an LR bolus of 500 mL due to the hypernatremia. UA is concerning for infection and patient was medicated with IV ceftriaxone. Cultures are pending. Covid swab was obtained and is positive. Patient was subsequently given IV Decadron and a DuoNeb treatment. Case was discussed with the hospitalist service who will evaluate the patient for admission and further management. MONITORING: An order for cardiac monitoring was placed and the patient is noted to be in a sinus tachycardia 102 bpm. RADIOLOGY: See below EKG: NSR at 87 bpm, poor quality baseline for interpretation. Nonspecific T wave abnormality. QTc 442. Normal axis. No PVC, no PAC. DIAGNOSIS: Covid pneumonia, hypoxic respiratory failure, hypernatremia I have personally spent 35 minutes of critical care time in the direct penelope gement of this patient. This was a life threatening event. This 35 minutes is in excess of all separately billable procedures. Past Med/Surg History Medical History Cerebrovascular disease Chronic interstitial cystitis Depression with anxiety Diverticulitis Surgical History H/O: hysterectomy History of appendectomy History of cystoscopy History of hemorrhoidectomy History of hip replacement Left History of oophorectomy History of partial colectomy History of tubal ligation S/P tonsillectomy and adenoidectomy Family History Brother Heart disease Father Alcohol abuse Mother CHF (congestive heart failure) Social History Smoking Status: Never smoker Hx Alcohol Use: No Hx Substance Use: No Preferred Language: Swedish Communication Ability: Effective Communication Ability Comment: pt non-verbal at this time, moans in response marital status: Current Living Situation: Spouse Feels Safe at Home: Yes Assistive Devices: Oxygen - Continuous Assistive Devices Comment: unable to assess at this time Allergies Allergies Allergy/AdvReac Type Severity Reaction Status Date / Time Penicillins Allergy Severe SWELLING Verified 12/13/20 08:20 OF THE FACE Sulfa (Sulfonamide Allergy Severe Hives Verified 12/13/20 08:20 Antibiotics) naproxen Allergy Intermediate RASH Verified 12/13/20 08:20 paroxetine Allergy Intermediate MUSCLE PAIN Verified 12/13/20 08:20 tapentadol Allergy Mild SKIN Verified 12/13/20 08:20 IRRITATION codeine AdvReac Mild DROWSINESS Verified 12/13/20 08:20 Home Meds Home Medications Medication Instructions Recorded Confirmed Lactobacills gasseri-Bifidobac 1 cap PO DAILY 12/13/20 12/13/20 bifidum,longum 1.5 billion cell capsule (Vivaty) Multiple Minerals Vitamin 1 tab PO DAILY 12/13/20 12/13/20 Prevagen 10 mg PO DAILY 12/13/20 12/13/20 Zantac 150mg Tablet 150 mg PO BID 12/13/20 12/13/20 albuterol sulfate 90 mcg/actuation 1 inh INHALATION QID PRN 12/13/20 12/13/20 aerosol inhaler (ProAir HFA) cholecalciferol (vitamin D3) 125 125 mcg PO DAILY 12/13/20 12/13/20 mcg (5,000 unit) tablet (Vitamin D3) conjugated estrogens 0.625 mg 0.625 mg PO DAILY 12/13/20 12/13/20 tablet (Premarin) cyanocobalamin (vitamin B-12) 500 500 mcg PO DAILY 12/13/20 12/13/20 mcg tablet (Vitamin B-12) diclofenac sodium 50 mg 50 mg PO TID PRN 12/13/20 12/13/20 tablet,delayed release fluocinonide 0.05 % topical 1 applic TOPICAL BID PRN 12/13/20 12/13/20 solution garlic 1,000 mg capsule (garlic 1,000 mg PO DAILY 12/13/20 12/13/20 oil) hydroxyzine HCl 10 mg tablet 10 mg PO Q6H PRN 12/13/20 12/13/20 magnesium 250 mg tablet 250 mg PO DAILY 12/13/20 12/13/20 methenamine-sodium salicylate 162 1 tab PO DAILY PRN 12/13/20 12/13/20 mg-162.5 mg tablet (Cystex Plus (methenamine-sodium salicylate)) metronidazole 0.75 % topical cream 1 applic TOPICAL BID PRN 12/13/20 12/13/20 (MetroCream) polyethylene glycol 3350 17 17 g PO DAILY 12/13/20 12/13/20 gram/dose oral powder (Miralax) senna-fennel tablet 1 tab PO DAILY 12/13/20 12/13/20 Results & Data (ED) Home Medications Current Medication List: was personally reviewed by me Laboratory Data Attestation: I reviewed the patient's lab results. Result diagrams: 12/16/20 07:19 12/16/20 07:19 Lab Results 12/13/20 12/13/20 12/13/20 Range/Units 05:13 05:15 05:15 WBC 13.03 H (4.8-10.8) K/uL RBC 3.98 L (4.2-5.4) M/uL Hgb 12.6 (12.0-16.0) g/dL Hct 37.1 (37-47) % MCV 93.2 (80-100) fL MCH 31.7 (25-34) pg MCHC 34.0 (32-36) g/dL RDW Std Deviation 50.1 H (36.4-46.3) fL RDW Coeff of Sid 14.7 H (11.5-14.5) % Plt Count 405 H (130-400) K/uL MPV 10.8 H (7.4-10.4) fL Immature Gran % (Auto) 1.1 % Neut % (Auto) 85.2 % Lymph % (Auto) 3.8 % Tillman % (Auto) 9.7 % Eos % (Auto) 0.0 % Baso % (Auto) 0.2 % Neut # (Auto) 11.11 H (1.4-6.5) K/uL Lymph # (Auto) 0.50 L (1.2-3.4) K/uL Tillman # (Auto) 1.26 H (0.11-0.59) K/uL Eos # (Auto) 0.00 (0-0.5) K/uL Baso # (Auto) 0.02 (0-0.2) K/uL Immature Gran # (Auto) 0.14 H (0.00-0.02) K/uL ESR (0-30) mm/hr Sodium 152 H (136-145) mmol/L Potassium 3.4 L (3.5-5.1) mmol/L Chloride 118 H (98-107) mmol/L Carbon Dioxide 22 (21-32) mmol/L Anion Gap 12.0 H (3-11) BUN 51 H (7-18) mg/dl Creatinine 1.90 H (0.6-1.2) mg/dl Est Cr Clr Drug Dosing 23.5 ml/min Est GFR ( Amer) 27.4 ml/min Est GFR (Non-Af Amer) 23.6 ml/min BUN/Creatinine Ratio 27.0 H (10-20) Glucose 135 H (70-99) mg/dl POC Glucose 140 H (70-99) mg/dl Estimat Average Glucose mg/dl Hemoglobin A1c (4.5-5.6) % Osmolality (280-300) mOsm/kg Lactate (0.4-2.0) mmol/L Calcium 9.1 (8.5-10.1) mg/dl Magnesium 2.5 H (1.8-2.4) mg/dl Total Bilirubin 1.3 H (0.2-1) mg/dl AST 39 H (15-37) U/L ALT 19 (12-78) U/L Alkaline Phosphatase 65 (45-117) U/L Troponin I 0.095 H* (0-0.045) ng/ml C-Reactive Protein (0-0.29) mg/dl NT-Pro-B Natriuret Pep 1579 (0-1800) pg/ml Total Protein 8.2 (6.4-8.2) gm/dl Albumin 2.5 L (3.4-5.0) gm/dl Globulin 5.7 H (2.5-4.0) gm/dl Albumin/Globulin Ratio 0.4 L (0.9-2) Procalcitonin (0-0.5) ng/ml Urine Color Urine Appearance (Clear) Urine pH (4.5-7.5) Ur Specific [place] (1.000-1.030) Urine Protein (Negative) Urine Glucose (UA) (Negative) Urine Ketones (Negative) Urine Blood (Negative) Urine Nitrite (Negative) Urine Bilirubin (Negative) Urine Urobilinogen (Negative) Ur Leukocyte Esterase (Negative) Urine WBC (Auto) (0-5) /hpf Urine RBC (Auto) (0-4) /hpf U Hyaline Cast (Auto) (0-5) /lpf U Epithel Cells (Auto) (0-5) /lpf Urine Bacteria (Auto) (Negative) COVID-19 Eval Order SARS-CoV-2 (PCR) (Negative) Influ A Molecular Assay (Negative) Influ B Molecular Assay (Negative) 12/13/20 12/13/20 12/13/20 Range/Units 05:15 05:15 05:15 WBC (4.8-10.8) K/uL RBC (4.2-5.4) M/uL Hgb (12.0-16.0) g/dL Hct (37-47) % MCV (80-100) fL MCH (25-34) pg MCHC (32-36) g/dL RDW Std Deviation (36.4-46.3) fL RDW Coeff of Sid (11.5-14.5) % Plt Count (130-400) K/uL MPV (7.4-10.4) fL Immature Gran % (Auto) % Neut % (Auto) % Lymph % (Auto) % Tillman % (Auto) % Eos % (Auto) % Baso % (Auto) % Neut # (Auto) (1.4-6.5) K/uL Lymph # (Auto) (1.2-3.4) K/uL Tillman # (Auto) (0.11-0.59) K/uL Eos # (Auto) (0-0.5) K/uL Baso # (Auto) (0-0.2) K/uL Immature Gran # (Auto) (0.00-0.02) K/uL ESR (0-30) mm/hr Sodium (136-145) mmol/L Potassium (3.5-5.1) mmol/L Chloride (98-107) mmol/L Carbon Dioxide (21-32) mmol/L Anion Gap (3-11) BUN (7-18) mg/dl Creatinine (0.6-1.2) mg/dl Est Cr Clr Drug Dosing ml/min Est GFR ( Amer) ml/min Est GFR (Non-Af Amer) ml/min BUN/Creatinine Ratio (10-20) Glucose (70-99) mg/dl POC Glucose (70-99) mg/dl Estimat Average Glucose mg/dl Hemoglobin A1c (4.5-5.6) % Osmolality (280-300) mOsm/kg Lactate (0.4-2.0) mmol/L Calcium (8.5-10.1) mg/dl Magnesium (1.8-2.4) mg/dl Total Bilirubin (0.2-1) mg/dl AST (15-37) U/L ALT (12-78) U/L Alkaline Phosphatase (45-117) U/L Troponin I (0-0.045) ng/ml C-Reactive Protein (0-0.29) mg/dl NT-Pro-B Natriuret Pep (0-1800) pg/ml Total Protein (6.4-8.2) gm/dl Albumin (3.4-5.0) gm/dl Globulin (2.5-4.0) gm/dl Albumin/Globulin Ratio (0.9-2) Procalcitonin (0-0.5) ng/ml Urine Color Urine Appearance (Clear) Urine pH (4.5-7.5) Ur Specific [place] (1.000-1.030) Urine Protein (Negative) Urine Glucose (UA) (Negative) Urine Ketones (Negative) Urine Blood (Negative) Urine Nitrite (Negative) Urine Bilirubin (Negative) Urine Urobilinogen (Negative) Ur Leukocyte Esterase (Negative) Urine WBC (Auto) (0-5) /hpf Urine RBC (Auto) (0-4) /hpf U Hyaline Cast (Auto) (0-5) /lpf U Epithel Cells (Auto) (0-5) /lpf Urine Bacteria (Auto) (Negative) COVID-19 Eval Order Covid19 at [facility] SARS-CoV-2 (PCR) POSITIVE A* (Negative) Influ A Molecular Assay Negative (Negative) Influ B Molecular Assay Negative (Negative) 12/13/20 12/13/20 12/13/20 Range/Units 05:15 05:15 05:15 WBC (4.8-10.8) K/uL RBC (4.2-5.4) M/uL Hgb (12.0-16.0) g/dL Hct (37-47) % MCV (80-100) fL MCH (25-34) pg MCHC (32-36) g/dL RDW Std Deviation (36.4-46.3) fL RDW Coeff of Sid (11.5-14.5) % Plt Count (130-400) K/uL MPV (7.4-10.4) fL Immature Gran % (Auto) % Neut % (Auto) % Lymph % (Auto) % Tillman % (Auto) % Eos % (Auto) % Baso % (Auto) % Neut # (Auto) (1.4-6.5) K/uL Lymph # (Auto) (1.2-3.4) K/uL Tillman # (Auto) (0.11-0.59) K/uL Eos # (Auto) (0-0.5) K/uL Baso # (Auto) (0-0.2) K/uL Immature Gran # (Auto) (0.00-0.02) K/uL ESR 82 H (0-30) mm/hr Sodium (136-145) mmol/L Potassium (3.5-5.1) mmol/L Chloride (98-107) mmol/L Carbon Dioxide (21-32) mmol/L Anion Gap (3-11) BUN (7-18) mg/dl Creatinine (0.6-1.2) mg/dl Est Cr Clr Drug Dosing ml/min Est GFR ( Amer) ml/min Est GFR (Non-Af Amer) ml/min BUN/Creatinine Ratio (10-20) Glucose (70-99) mg/dl POC Glucose (70-99) mg/dl Estimat Average Glucose mg/dl Hemoglobin A1c (4.5-5.6) % Osmolality (280-300) mOsm/kg Lactate (0.4-2.0) mmol/L Calcium (8.5-10.1) mg/dl Magnesium (1.8-2.4) mg/dl Total Bilirubin (0.2-1) mg/dl AST (15-37) U/L ALT (12-78) U/L Alkaline Phosphatase (45-117) U/L Troponin I (0-0.045) ng/ml C-Reactive Protein 29.20 H (0-0.29) mg/dl NT-Pro-B Natriuret Pep (0-1800) pg/ml Total Protein (6.4-8.2) gm/dl Albumin (3.4-5.0) gm/dl Globulin (2.5-4.0) gm/dl Albumin/Globulin Ratio (0.9-2) Procalcitonin 0.58 H (0-0.5) ng/ml Urine Color Urine Appearance (Clear) Urine pH (4.5-7.5) Ur Specific [place] (1.000-1.030) Urine Protein (Negative) Urine Glucose (UA) (Negative) Urine Ketones (Negative) Urine Blood (Negative) Urine Nitrite (Negative) Urine Bilirubin (Negative) Urine Urobilinogen (Negative) Ur Leukocyte Esterase (Negative) Urine WBC (Auto) (0-5) /hpf Urine RBC (Auto) (0-4) /hpf U Hyaline Cast (Auto) (0-5) /lpf U Epithel Cells (Auto) (0-5) /lpf Urine Bacteria (Auto) (Negative) COVID-19 Eval Order SARS-CoV-2 (PCR) (Negative) Influ A Molecular Assay (Negative) Influ B Molecular Assay (Negative) 12/13/20 12/13/20 12/13/20 Range/Units 05:15 05:15 05:30 WBC (4.8-10.8) K/uL RBC (4.2-5.4) M/uL Hgb (12.0-16.0) g/dL Hct (37-47) % MCV (80-100) fL MCH (25-34) pg MCHC (32-36) g/dL RDW Std Deviation (36.4-46.3) fL RDW Coeff of Sid (11.5-14.5) % Plt Count (130-400) K/uL MPV (7.4-10.4) fL Immature Gran % (Auto) % Neut % (Auto) % Lymph % (Auto) % Tillman % (Auto) % Eos % (Auto) % Baso % (Auto) % Neut # (Auto) (1.4-6.5) K/uL Lymph # (Auto) (1.2-3.4) K/uL Tillman # (Auto) (0.11-0.59) K/uL Eos # (Auto) (0-0.5) K/uL Baso # (Auto) (0-0.2) K/uL Immature Gran # (Auto) (0.00-0.02) K/uL ESR (0-30) mm/hr Sodium (136-145) mmol/L Potassium (3.5-5.1) mmol/L Chloride (98-107) mmol/L Carbon Dioxide (21-32) mmol/L Anion Gap (3-11) BUN (7-18) mg/dl Creatinine (0.6-1.2) mg/dl Est Cr Clr Drug Dosing ml/min Est GFR ( Amer) ml/min Est GFR (Non-Af Amer) ml/min BUN/Creatinine Ratio (10-20) Glucose (70-99) mg/dl POC Glucose (70-99) mg/dl Estimat Average Glucose 123 mg/dl Hemoglobin A1c 5.9 H (4.5-5.6) % Osmolality 337 H (280-300) mOsm/kg Lactate (0.4-2.0) mmol/L Calcium (8.5-10.1) mg/dl Magnesium (1.8-2.4) mg/dl Total Bilirubin (0.2-1) mg/dl AST (15-37) U/L ALT (12-78) U/L Alkaline Phosphatase (45-117) U/L Troponin I (0-0.045) ng/ml C-Reactive Protein (0-0.29) mg/dl NT-Pro-B Natriuret Pep (0-1800) pg/ml Total Protein (6.4-8.2) gm/dl Albumin (3.4-5.0) gm/dl Globulin (2.5-4.0) gm/dl Albumin/Globulin Ratio (0.9-2) Procalcitonin (0-0.5) ng/ml Urine Color [place] Urine Appearance Turbid A (Clear) Urine pH 5.0 (4.5-7.5) Ur Specific [place] 1.021 (1.000-1.030) Urine Protein 2+ H (Negative) Urine Glucose (UA) Negative (Negative) Urine Ketones 1+ H (Negative) Urine Blood 3+ H (Negative) Urine Nitrite Negative (Negative) Urine Bilirubin 1+ H (Negative) Urine Urobilinogen Negative (Negative) Ur Leukocyte Esterase 2+ H (Negative) Urine WBC (Auto) 10-30 H (0-5) /hpf Urine RBC (Auto) >30 H (0-4) /hpf U Hyaline Cast (Auto) 1-5 (0-5) /lpf U Epithel Cells (Auto) 5-10 H (0-5) /lpf Urine Bacteria (Auto) 4+ H (Negative) COVID-19 Eval Order SARS-CoV-2 (PCR) (Negative) Influ A Molecular Assay (Negative) Influ B Molecular Assay (Negative) 09/28/21 Range/Units 08:08 WBC (4.8-10.8) K/uL RBC (4.2-5.4) M/uL Hgb (12.0-16.0) g/dL Hct (37-47) % MCV (80-100) fL MCH (25-34) pg MCHC (32-36) g/dL RDW Std Deviation (36.4-46.3) fL RDW Coeff of Sid (11.5-14.5) % Plt Count (130-400) K/uL MPV (7.4-10.4) fL Immature Gran % (Auto) % Neut % (Auto) % Lymph % (Auto) % Tillman % (Auto) % Eos % (Auto) % Baso % (Auto) % Neut # (Auto) (1.4-6.5) K/uL Lymph # (Auto) (1.2-3.4) K/uL Tillman # (Auto) (0.11-0.59) K/uL Eos # (Auto) (0-0.5) K/uL Baso # (Auto) (0-0.2) K/uL Immature Gran # (Auto) (0.00-0.02) K/uL ESR (0-30) mm/hr Sodium (136-145) mmol/L Potassium (3.5-5.1) mmol/L Chloride (98-107) mmol/L Carbon Dioxide (21-32) mmol/L Anion Gap (3-11) BUN (7-18) mg/dl Creatinine (0.6-1.2) mg/dl Est Cr Clr Drug Dosing ml/min Est GFR ( Amer) ml/min Est GFR (Non-Af Amer) ml/min BUN/Creatinine Ratio (10-20) Glucose (70-99) mg/dl POC Glucose (70-99) mg/dl Estimat Average Glucose mg/dl Hemoglobin A1c (4.5-5.6) % Osmolality (280-300) mOsm/kg Lactate 2.8 H* (0.4-2.0) mmol/L Calcium (8.5-10.1) mg/dl Magnesium (1.8-2.4) mg/dl Total Bilirubin (0.2-1) mg/dl AST (15-37) U/L ALT (12-78) U/L Alkaline Phosphatase (45-117) U/L Troponin I (0-0.045) ng/ml C-Reactive Protein (0-0.29) mg/dl NT-Pro-B Natriuret Pep (0-1800) pg/ml Total Protein (6.4-8.2) gm/dl Albumin (3.4-5.0) gm/dl Globulin (2.5-4.0) gm/dl Albumin/Globulin Ratio (0.9-2) Procalcitonin (0-0.5) ng/ml Urine Color Urine Appearance (Clear) Urine pH (4.5-7.5) Ur Specific [place] (1.000-1.030) Urine Protein (Negative) Urine Glucose (UA) (Negative) Urine Ketones (Negative) Urine Blood (Negative) Urine Nitrite (Negative) Urine Bilirubin (Negative) Urine Urobilinogen (Negative) Ur Leukocyte Esterase (Negative) Urine WBC (Auto) (0-5) /hpf Urine RBC (Auto) (0-4) /hpf U Hyaline Cast (Auto) (0-5) /lpf U Epithel Cells (Auto) (0-5) /lpf Urine Bacteria (Auto) (Negative) COVID-19 Eval Order SARS-CoV-2 (PCR) (Negative) Influ A Molecular Assay (Negative) Influ B Molecular Assay (Negative) Administered Medications Albuterol (Albuterol 0.083% Nebu Soln 3 Ml Vial) 2.5 mg NEB QIDR PRN PRN Reason: Shortness Of Breath Or Wheezing Stop: 01/12/21 10:59 Last Admin: 12/14/20 14:27 Dose: 2.5 mg Documented by: [id number] Lorazepam (Ativan) 0.5 mg in 1 mls @ 1 mls/min IV Q6H SHAYLEE Stop: 01/15/21 11:44 Last Admin: 12/18/20 23:59 Dose: 1 mls/min Documented by: [id number] Admin: 12/18/20 18:05 Dose: 1 mls/min Documented by: [id number] Admin: 12/18/20 11:58 Dose: 1 mls/min Documented by: [id number] Admin: 12/18/20 06:11 Dose: 1 mls/min Documented by: [id number] Admin: 12/17/20 23:49 Dose: 1 mls/min Documented by: [id number] Admin: 12/17/20 17:21 Dose: Not Given Documented by: [id number] Admin: 12/17/20 11:34 Dose: Not Given Documented by: [id number] Admin: 12/17/20 06:02 Dose: 1 mls/min Documented by: [id number] Admin: 12/17/20 00:04 Dose: 1 mls/min Documented by: [id number] Admin: 12/16/20 17:09 Dose: 1 mls/min Documented by: [id number] Admin: 12/16/20 12:22 Dose: 1 mls/min Documented by: [id number] Morphine Sulfate (Morphine Sulf/Nss) 250 mg in 250 mls @ 2.5 mls/hr IV .Q96H SHAYLEE; Protocol Stop: 12/30/20 16:14 Last Titration: 12/18/20 22:51 Dose: 2.5 mg/hr, 2.5 mls/hr Documented by: [id number] Cosigned by: [id number] Titration: 12/18/20 18:53 Dose: 2 mg/hr, 2 mls/hr Documented by: [id number] Cosigned by: [id number] Titration: 12/18/20 06:44 Dose: 2 mg/hr, 2 mls/hr Documented by: [id number] Cosigned by: [id number] Titration: 12/17/20 17:21 Dose: 2 mg/hr, 2 mls/hr Documented by: [id number] Cosigned by: [id number] Titration: 12/17/20 06:53 Dose: 1.5 mg/hr, 1.5 mls/hr Documented by: [id number] Cosigned by: [id number] Titration: 12/17/20 00:09 Dose: 1.5 mg/hr, 1.5 mls/hr Documented by: [id number] Cosigned by: [id number] Titration: 12/16/20 19:24 Dose: 1 mg/hr, 1 mls/hr Documented by: [id number] Cosigned by: [id number] Admin: 12/16/20 17:30 Dose: 0.5 mg/hr, 0.5 mls/hr Documented by: [id number] Cosigned by: [id number] Discontinued Medications Albuterol (Albuterol 0.083% Nebu Soln 3 Ml Vial) 2.5 mg NEB QIDR SHAYLEE Stop: 01/12/21 10:59 Last Admin: 12/14/20 07:52 Dose: 2.5 mg Documented by: [id number] Admin: 12/13/20 20:34 Dose: 2.5 mg Documented by: [id number] Admin: 12/13/20 14:49 Dose: 2.5 mg Documented by: [id number] Admin: 12/13/20 11:22 Dose: 2.5 mg Documented by: [id number] Dexamethasone (Dexamethasone Sod Inj 4 Mg/Ml Vial) Confirm Administered Dose 8 mg .ROUTE .STK-MED ONE Stop: 12/13/20 07:39 Last Admin: 12/13/20 07:43 Dose: 6 mg Documented by: [id number] Furosemide (Furosemide 40 Mg/4 Ml Vial) 40 mg IV NOW STA Stop: 12/13/20 05:49 Last Admin: 12/13/20 06:19 Dose: Not Given Documented by: [id number] Furosemide (Furosemide 40 Mg/4 Ml Vial) 20 mg IV NOW STA Stop: 12/13/20 06:20 Last Admin: 12/13/20 06:25 Dose: 20 mg Documented by: [id number] Heparin Sodium (Porcine) (Heparin Sod 5,000 Unit/0.5 Ml Vial) 7,500 units SQ Q8 SHAYLEE Stop: 01/12/21 13:59 Last Admin: 12/15/20 06:25 Dose: 7,500 units Documented by: [id number] Admin: 12/14/20 22:27 Dose: 7,500 units Documented by: [id number] Admin: 12/14/20 13:08 Dose: 7,500 units Documented by: [id number] Admin: 12/14/20 06:29 Dose: 7,500 units Documented by: [id number] Admin: 12/13/20 23:21 Dose: 7,500 units Documented by: [id number] Admin: 12/13/20 15:41 Dose: 7,500 units Documented by: [id number] Heparin Sodium (Porcine) (Heparin Sod (Porcine) 1000 Unit/Ml) 5,000 units IV NOW ONE Stop: 12/15/20 08:11 Last Admin: 12/15/20 09:12 Dose: 5,000 units Documented by: [id number] Cosigned by: [id number] Heparin Sodium/Dextrose (Heparin Iv Adult Wt-Based Standard With Bolus Protocol) 1 ea IV NOW STA; Protocol Stop: 12/15/20 08:03 Last Admin: 12/15/20 09:12 Dose: 1 ea Documented by: [id number] Lactated Ringer's (Lr) 1,000 mls @ 100 mls/hr IV .Q10H SHAYLEE Stop: 01/12/21 06:44 Last Infusion: 12/13/20 18:29 Dose: 0 mls/hr Documented by: [id number] Admin: 12/13/20 07:30 Dose: 100 mls/hr Documented by: [id number] Lactated Ringer's (Lr) 250 mls @ 999 mls/hr IV .Q16M ONE Stop: 12/13/20 06:54 Last Infusion: 12/13/20 07:34 Dose: 0 mls/hr Documented by: [id number] Admin: 12/13/20 06:56 Dose: 999 mls/hr Documented by: [id number] Ceftriaxone Sodium (Rocephin) 1,000 mg in 50 mls @ 100 mls/hr IV NOW STA Stop: 12/13/20 07:14 Last Infusion: 12/13/20 07:33 Dose: 0 mls/hr Documented by: [id number] Admin: 12/13/20 06:56 Dose: 100 mls/hr Documented by: [id number] Dexamethasone 6 mg/ Syringe 1.5 mls @ 1 mls/min IV ONE ONE Stop: 12/13/20 07:26 Last Admin: 12/13/20 07:43 Dose: Not Given Documented by: [id number] Lorazepam (Ativan) 0.5 mg in 1 mls @ 1 mls/min IV NOW STA Stop: 12/13/20 07:47 Last Admin: 12/13/20 07:54 Dose: 1 mls/min Documented by: [id number] Potassium Chloride (K Kj / Wtr) 10 meq in 100 mls @ 100 mls/hr IV Q1H [facility]E Stop: 12/13/20 10:29 Last Infusion: 12/13/20 15:23 Dose: 0 mls/hr Documented by: [id number] Admin: 12/13/20 12:14 Dose: 100 mls/hr Documented by: [id number] Infusion: 12/13/20 10:57 Dose: 0 mls/hr Documented by: [id number] Admin: 12/13/20 08:57 Dose: 100 mls/hr Documented by: [id number] Ceftriaxone Sodium (Rocephin) 1,000 mg in 50 mls @ 100 mls/hr IV NOW STA Stop: 12/13/20 10:15 Last Infusion: 12/13/20 12:30 Dose: 0 mls/hr Documented by: [id number] Admin: 12/13/20 11:54 Dose: 100 mls/hr Documented by: [id number] Famotidine 20 mg/ Syringe 5 mls @ 2.5 mls/min IV DAILY SH[facility]LEE Stop: 01/12/21 10:36 Last Admin: 12/16/20 07:46 Dose: 2.5 mls/min Documented by: [id number] Admin: 12/15/20 09:30 Dose: 2.5 mls/min Documented by: [id number] Admin: 12/14/20 09:01 Dose: 2.5 mls/min Documented by: [id number] Admin: 12/13/20 12:14 Dose: 2.5 mls/min Documented by: [id number] Ceftriaxone Sodium 2,000 mg/ (Dextrose) 50 mls @ 100 mls/hr IV Q24H [facility]LEE; Protocol Stop: 12/19/20 08:59 Last Infusion: 12/14/20 09:45 Dose: 0 mls/hr Documented by: [id number] Admin: 12/14/20 09:14 Dose: 100 mls/hr Documented by: [id number] Dexamethasone 6 mg/ Syringe 1.5 mls @ 1 mls/min IV DAILY SH[facility]LEE Stop: 12/24/20 08:59 Last Admin: 12/14/20 09:05 Dose: 1 mls/min Documented by: [id number] Doxycycline Hyclate 100 mg/ (Dextrose) 110 mls @ 50 mls/hr IV Q12H [facility] Stop: 12/20/20 10:36 Last Infusion: 12/16/20 12:39 Dose: 0 mls/hr Documented by: [id number] Admin: 12/16/20 11:10 Dose: 50 mls/hr Documented by: [id number] Infusion: 12/16/20 00:20 Dose: 0 mls/hr Documented by: [id number] Admin: 12/15/20 22:03 Dose: 50 mls/hr Documented by: [id number] Infusion: 12/15/20 14:15 Dose: 0 mls/hr Documented by: [id number] Admin: 12/15/20 12:00 Dose: 50 mls/hr Documented by: [id number] Infusion: 12/15/20 04:50 Dose: 0 mls/hr Documented by: [id number] Admin: 12/14/20 22:28 Dose: 50 mls/hr Documented by: [id number] Infusion: 12/14/20 13:52 Dose: 0 mls/hr Documented by: [id number] Admin: 12/14/20 11:35 Dose: 50 mls/hr Documented by: [id number] Infusion: 12/14/20 02:58 Dose: 0 mls/hr Documented by: [id number] Admin: 12/13/20 23:21 Dose: 50 mls/hr Documented by: [id number] Infusion: 12/13/20 14:45 Dose: 0 mls/hr Documented by: [id number] Admin: 12/13/20 12:14 Dose: 50 mls/hr Documented by: [id number] Lactated Ringer's (Lr) 1,000 mls @ 100 mls/hr IV .Q10H [facility] Stop: 12/14/20 06:36 Last Infusion: 12/14/20 06:30 Dose: 0 mls/hr Documented by: [id number] Admin: 12/13/20 18:33 Dose: 100 mls/hr Documented by: [id number] Admin: 12/13/20 11:31 Dose: Not Given Documented by: [id number] Ampicillin Sodium 500 mg/ (Sodium Chloride) 52 mls @ 100 mls/hr IV Q6 [facility]LEE; Protocol Stop: 12/24/20 11:59 Last Infusion: 12/15/20 15:08 Dose: 0 mls/hr Documented by: [id number] Admin: 12/15/20 14:15 Dose: 100 mls/hr Documented by: [id number] Infusion: 12/15/20 07:00 Dose: 0 mls/hr Documented by: [id number] Admin: 12/15/20 06:26 Dose: 100 mls/hr Documented by: [id number] Infusion: 12/15/20 04:43 Dose: 0 mls/hr Documented by: [id number] Admin: 12/15/20 01:42 Dose: 100 mls/hr Documented by: [id number] Infusion: 12/14/20 18:40 Dose: 0 mls/hr Documented by: [id number] Admin: 12/14/20 18:09 Dose: 104 mls/hr Documented by: [id number] Infusion: 12/14/20 14:40 Dose: 0 mls/hr Documented by: [id number] Admin: 12/14/20 13:53 Dose: 100 mls/hr Documented by: [id number] Heparin Sodium/Dextrose (Heparin Sodium/Dextrose) 25,000 units in 500 mls @ 13 mls/hr IV .Q24H SHAYLEE; Protocol Stop: 01/14/21 08:14 Last Titration: 12/16/20 12:39 Dose: 0 units/hr, 0 mls/hr Documented by: [id number] Cosigned by: [id number] Titration: 12/16/20 10:38 Dose: 650 units/hr, 13 mls/hr Documented by: [id number] Cosigned by: [id number] Admin: 12/16/20 10:01 Dose: Not Given Documented by: [id number] Titration: 12/16/20 08:38 Dose: 0 units/hr, 0 mls/hr Documented by: [id number] Cosigned by: [id number] Admin: 12/16/20 07:46 Dose: Not Given Documented by: [id number] Titration: 12/16/20 01:36 Dose: 900 units/hr, 18 mls/hr Documented by: [id number] Cosigned by: [id number] Titration: 12/15/20 23:05 Dose: 1,250 units/hr, 25 mls/hr Documented by: [id number] Cosigned by: [id number] Titration: 12/15/20 21:23 Dose: 0 units/hr, 0 mls/hr Documented by: [id number] Cosigned by: [id number] Titration: 12/15/20 19:06 Dose: 0 units/hr, 0 mls/hr Documented by: [id number] Cosigned by: [id number] Titration: 12/15/20 11:15 Dose: 0 units/hr, 0 mls/hr Documented by: [id number] Cosigned by: [id number] Admin: 12/15/20 09:13 Dose: 1,250 units/hr, 25 mls/hr Documented by: [id number] Cosigned by: [id number] Dextrose (D5w) 1,000 mls @ 100 mls/hr IV .Q10H SHAYLEE Stop: 12/15/20 17:59 Last Infusion: 12/15/20 18:12 Dose: 0 mls/hr Documented by: [id number] Admin: 12/15/20 09:21 Dose: 100 mls/hr Documented by: [id number] Furosemide 40 mg/ Syringe 4 mls @ 4 mls/min IV ONE ONE Stop: 12/15/20 09:16 Last Admin: 12/15/20 10:32 Dose: 4 mls/min Documented by: [id number] Dexamethasone 10 mg/ Syringe 2.5 mls @ 1 mls/min IV DAILY SHAYLEE Stop: 12/24/20 09:03 Last Admin: 12/16/20 07:46 Dose: 1 mls/min Documented by: [id number] Admin: 12/15/20 10:33 Dose: 1 mls/min Documented by: [id number] Potassium Chloride 40 meq/ (Dextrose) 1,020 mls @ 100 mls/hr IV .[id number] SHAYLEE Stop: 01/14/21 17:59 Last Infusion: 12/16/20 10:48 Dose: 0 mls/hr Documented by: [id number] Admin: 12/16/20 04:06 Dose: 100 mls/hr Documented by: [id number] Infusion: 12/16/20 04:06 Dose: 100 mls/hr Documented by: [id number] Admin: 12/15/20 18:42 Dose: 100 mls/hr Documented by: [id number] Potassium Acetate 10 meq/ (Sodium Chloride) 105 mls @ 105 mls/hr IV Q1H SHAYLEE Stop: 12/15/20 17:14 Last Infusion: 12/15/20 18:46 Dose: 0 mls/hr Documented by: [id number] Admin: 12/15/20 17:22 Dose: 105 mls/hr Documented by: [id number] Infusion: 12/15/20 17:08 Dose: 105 mls/hr Documented by: [id number] Admin: 12/15/20 16:08 Dose: 105 mls/hr Documented by: [id number] Ciprofloxacin (Cipro / D5w) 400 mg in 200 mls @ 100 mls/hr IV Q24H SHAYLEE; Protocol Stop: 12/25/20 19:59 Last Infusion: 12/15/20 21:52 Dose: 0 mls/hr Documented by: [id number] Admin: 12/15/20 19:52 Dose: 100 mls/hr Documented by: [id number] Lorazepam (Ativan) 0.5 mg in 1 mls @ 1 mls/min IV Q12H PRN PRN Reason: Agitation Stop: 01/14/21 16:21 Last Admin: 12/15/20 17:38 Dose: 1 mls/min Documented by: [id number] Potassium Chloride (K Kj / Wtr) 10 meq in 100 mls @ 100 mls/hr IV Q1H SHAYLEE Stop: 12/16/20 17:59 Last Infusion: 12/16/20 21:57 Dose: 0 mls/hr Documented by: [id number] Infusion: 12/16/20 21:22 Dose: 50 mls/hr Documented by: [id number] Admin: 12/16/20 21:18 Dose: 50 mls/hr Documented by: [id number] Infusion: 12/16/20 17:43 Dose: 100 mls/hr Documented by: [id number] Admin: 12/16/20 16:43 Dose: 100 mls/hr Documented by: [id number] Nitroglycerin (Nitroglycerin 2% Ointment 30gm Tube) 0.5 inch EXT NOW STA Stop: 12/13/20 05:49 Last Admin: 12/13/20 06:18 Dose: Not Given Documented by: [id number] Sodium Bicarbonate (Sodium Bicarb 8.4% Inj 50 Meq/50 Ml Syr) 50 meq IV NOW STA Stop: 12/15/20 08:41 Last Admin: 12/15/20 09:19 Dose: 50 meq Documented by: [id number] Imaging Data Attestation: I personally reviewed and interpreted this imaging study as follows: Radiologist's Impression: Chest X-Ray 12/13/20 05:49 SINGLE VIEW CHEST CLINICAL HISTORY: Dyspnea. FINDINGS: An AP, portable, upright chest radiograph is compared to study dated 03/31/2019 and correlated with chest CT dated 04/13/2015. The examination is degraded by portable technique and patient rotation. The heart is mildly enlarged noting atherosclerotic calcification of the thoracic aorta. Hazy airspace opacities are seen throughout both lungs. No large pleural effusion or pneumothorax is identified. The skeletal structures are osteopenic. The bony thorax is grossly intact. IMPRESSION: Hazy airspace opacities are seen throughout both lungs. Differential considerations include fluid overload/edema and/or an infectious/inflammatory pneumonitis. Clinical correlation will be required and radiographic follow-up to resolution is recommended. ACT 112: Negative or not required by law. Electronically signed by: Taco Monzon M.D. 12/13/2020 8:26 AM Pelvis X-Ray 12/13/20 05:53 XR pelvis 1-2V routine CLINICAL HISTORY: Left hip pain. COMPARISON STUDY: Abdomen and pelvis CT 04/13/2015. FINDINGS: Severe osteoarthritis of the right hip again noted. There is a left total hip arthroplasty. The hardware appears intact. No fracture or dislocation within the pelvis or hips. Soft tissues are unremarkable. The visualized sacrum is intact. IMPRESSION: No fractures within the pelvis or hips. ACT 112: Negative or not required by law. Electronically signed by: Guido Richmond M.D. 12/13/2020 8:30 AM Blood Pressure Blood Pressure Findings: Normal blood pressure Blood Pressure Disposition: Referred to patients primary care provider Discharge Plan Visit Data Chief Complaint: Shortness of Breath/Dyspnea Stated Complaint: ALTERED LEVEL OF RESPONSIVENESS ED Provider: Nanci Santos Discharge Problem: Acute respiratory failure with hypoxia, Pneumonia due to COVID-19 virus, YUMIKO (acute kidney injury) Patient Disposition: Admitted As Inpatient Discharge Instructions Interventions: ED Discharge Assessment Last Done: 12/13/20 09:54
[2020-12-19] MEDS: LORazepam 0.5 MG/1 ML VIAL IV SCH ×4 (06:16→23:59)
--- NOTE | 2020-12-19 12:29 | Palliative Care Progress Note ---
Date of Service December 19, 2020 Assessment & Plan (1) Acute respiratory failure with hypoxia: Plan: No apparent dyspnea on morphine infusion. No signs of morphine toxicity. Continue at current rate of 2.5mg/hr. Given focus on comfort, would not continue O2 flow at 10 L. Will decrease to 3L for comfort only. (2) Palliative care encounter: Plan: I spoke with Mr. Palafox on the phone and updated him. He, fortunately, is not symptomatic at this time. We discussed apnea and likelihood that we are approaching her dying time. Per family request, [employer] channel is playing for Janet. (3) Pneumonia due to COVID-19 virus: Admission and Anticipated Discharge Date Admission Date: December 13, 2020 Subjective No response to voice or touch. Resting comfortably. Apnea at times per RN. Review of Systems Review of Systems: Unobtainable due to reduced consciousness [place] Symptom Assessment Scale Pain 0/3 by observation Dyspnea 0/3 by observation Palliative Performance Score 10% Physical Exam Constitutional: comfortable; no acute distress ENMT: Mouth: + dry oral mucous membranes Respiratory: no labored breathing no audible rhonchi O2 high flow at 10 L Cardiovascular: Rate/Rhythm: regular rate and regular rhythm Gastrointestinal (Abdomen): soft, nontender Musculoskeletal: Extremities: extremities normal to inspection Neurologic: + obtunded no myoclonus Results & Data ([facility]) Vital Signs (Past 12 Hours) Vital Signs Temp Pulse Resp BP Pulse Ox 12/19/20 10:34 97.5 F L 98 H 10 L 113/62 94 PG Care Time/CCT Total # of Minutes Spent Total Time Spent with Patient: Total time spent is greater than 50% in coordination of care (as documented) at patient's floor/unit and/or counseling patient: Coding Level of Care Code 51598 Subseq Hosp Care Lvl 2 Diagnoses Acute respiratory failure with hypoxia J96.01 Palliative care encounter Z51.5 Pneumonia due to COVID-19 virus U07.1; J12.82
--- NOTE | 2020-12-19 13:21 | Hospitalist Progress Note ---
Date of Service December 19, 2020 Assessment & Plan (1) Acute respiratory failure with hypoxia: (2) Sepsis: (3) Pneumonia due to COVID-19 virus: Plan: 85-year-old female who has significant past medical history of depression with anxiety, chronic interstitial cystitis, HLD, cerebral vascular disease, somatization, IBS who presents to ER secondary to altered mental status x2 days. Pt meets Sepsis criteria on admission 2/2 to wbc 13k, tachypnea, tachycardia Source: Covid PNA and possible UTI Blood cultures negative Received IV rocephin in ED ESR 82, CRP 29.2, procalcitonin 0.58 Urine culture growing Enterococcus and Citrobacter both sensitive to ciprofloxa becky. Antibiotics was changed to ciprofloxacin Was initially on BIPAP, dexamethasone Was on heparin drip from peripheral anticoagulation for possible PE as CT PE cannot be obtained due to renal function. radiological equipment specialist had further conversations with patient's family. They decided to discontinue active treatment and pursue comfort care based on patient previous wishes Patient is currently on comfort measures and all active treatment discontinued by family request On morphine drip per Palliative team (4) Acute metabolic encephalopathy: Plan: Multi factorial in setting of sepsis, covid-19, UTI, YUMIKO and hypernatremia (5) UTI (urinary tract infection): Plan: UA concerning for UTI Urine culture growing enterococcus and citrobacter (6) Elevated troponin: (7) YUMIKO (acute kidney injury): (8) Metabolic acidosis: Plan: likely multifactorial in setting of YUMIKO, lactic acidosis, electrolyte derangements, acute resp failure obtain abg (9) Lactic acidosis: Plan: LA 2.8, likely multifactorial in setting of possible sepsis, hypoxia and yumiko Lactic acidosis resolved (10) Hypernatremia: Plan: likely 2/2 to GI loss and poor intake (11) Hypokalemia: (12) Pre-diabetes: Plan: a1c 5.9 Admission and Anticipated Discharge Date Admission Date: December 13, 2020 Subjective 85-year-old woman with history of depression, anxiety, chronic interstitial cystitis, hyperlipidemia, cerebrovascular disease, IBS who presented to the ER for altered mental status for 2 days. Being managed for sepsis, acute respiratory failure with hypoxia secondary to COVID-19 pneumonia. Patient seen and examined today Currently on comfort care Currently obtunded Review of Systems Review of Systems: Unobtainable due to reduced consciousness Physical Exam Constitutional: Elderly woman in no distress Respiratory: Diminished breath sounds. Shallow breathing Cardiovascular: RRR. S1-S2 Gastrointestinal (Abdomen): normal bowel sounds, soft, nontender, no hepatosplenomegaly Musculoskeletal: No pedal edema Neurologic: Obtunded Results & Data Results & Data ([facility]) Vital Signs (Past 12 Hours) Vital Signs Temp Pulse Resp BP Pulse Ox 12/19/20 10:34 36.4 C L 98 H 10 L 113/62 94
[2020-12-20] MEDS: LORazepam 0.5 MG/1 ML VIAL IV SCH ×4 (06:01→23:54)
--- NOTE | 2020-12-20 13:07 | Hospitalist Progress Note ---
Date of Service December 20, 2020 Assessment & Plan (1) Acute respiratory failure with hypoxia: (2) Sepsis: (3) Pneumonia due to COVID-19 virus: Plan: 85-year-old female who has significant past medical history of depression with anxiety, chronic interstitial cystitis, HLD, cerebral vascular disease, somatization, IBS who presents to ER secondary to altered mental status x2 days. Pt meets Sepsis criteria on admission 2/2 to wbc 13k, tachypnea, tachycardia Source: Covid PNA and possible UTI Blood cultures negative Received IV rocephin in ED ESR 82, CRP 29.2, procalcitonin 0.58 Urine culture growing Enterococcus and Citrobacter both sensitive to ciprofloxa becky. Antibiotics was changed to ciprofloxacin Was initially on BIPAP, dexamethasone Was on heparin drip for therapeutic anticoagulation for possible PE as CT PE cannot be obtained due to renal function. environmental management specialist had further conversations with patient's family. They decided to discontinue active treatment and pursue comfort care based on patient previous wishes Patient is currently on comfort measures and all active treatment discontinued by family request On morphine drip per Palliative team (4) Acute metabolic encephalopathy: Plan: Multi factorial in setting of sepsis, covid-19, UTI, YUMIKO and hypernatremia (5) UTI (urinary tract infection): Plan: UA concerning for UTI Urine culture growing enterococcus and citrobacter (6) Elevated troponin: (7) YUMIKO (acute kidney injury): (8) Metabolic acidosis: Plan: likely multifactorial in setting of YUMIKO, lactic acidosis, electrolyte derangements, acute resp failure obtain abg (9) Lactic acidosis: Plan: LA 2.8, likely multifactorial in setting of possible sepsis, hypoxia and yumiko Lactic acidosis resolved (10) Hypernatremia: Plan: likely 2/2 to GI loss and poor intake (11) Hypokalemia: (12) Pre-diabetes: Plan: a1c 5.9 Admission and Anticipated Discharge Date Admission Date: December 13, 2020 Subjective 85-year-old woman with history of depression, anxiety, chronic interstitial cystitis, hyperlipidemia, cerebrovascular disease, IBS who presented to the ER for altered mental status for 2 days. Being managed for sepsis, acute respiratory failure with hypoxia secondary to COVID-19 pneumonia. Patient seen and examined today Currently on comfort care On morphine drip per Palliative team Review of Systems Review of Systems: Unobtainable due to reduced consciousness Physical Exam Constitutional: Elderly woman in no obvious distress, obtunded Respiratory: Diminished breath sounds. Reduced respiratory rate Cardiovascular: RRR. S1-S2 Gastrointestinal (Abdomen): Diminished bowel sounds, soft Musculoskeletal: No pedal edema Neurologic: Obtunded. Withdraws to noxious stimuli Results & Data Results & Data ([facility]) Vital Signs (Past 12 Hours) Vital Signs Pulse Resp Pulse Ox 12/20/20 06:07 103 H 6 L 96 12/20/20 04:38 100 H 7 L 95 12/20/20 03:11 104 H 6 L 95 12/20/20 01:37 101 H 95
--- NOTE | 2020-12-20 16:02 | Palliative Care Progress Note ---
Date of Service December 20, 2020 Assessment & Plan (1) Agitation: Plan: Controlled with improved symptom control. Continue morphine infusion (2) Palliative care encounter: Plan: Goal of care is comfort care. Continue focus on symptom management. Admission and Anticipated Discharge Date Admission Date: December 13, 2020 Subjective Resting comfortably. Tolerating care. Periods of apnea. Review of Systems Review of Systems: Unobtainable due to reduced consciousness Physical Exam Constitutional: no acute distress Respiratory: no respiratory distress Neurologic: + obtunded Results & Data ([facility]) Vital Signs (Past 12 Hours) Vital Signs Pulse Resp Pulse Ox 12/20/20 06:07 103 H 6 L 96 12/20/20 04:38 100 H 7 L 95 PG Care Time/CCT Total # of Minutes Spent Total Time Spent with Patient: Total time spent is greater than 50% in coordination of care (as documented) at patient's floor/unit and/or counseling patient: Coding Level of Care Code 58884 Subseq Hosp Care Lvl 1 Diagnoses Agitation R45.1 Palliative care encounter Z51.5
[2020-12-21] MEDS: LORazepam 0.5 MG/1 ML VIAL IV SCH ×4 (05:42→23:06)
--- NOTE | 2020-12-21 12:34 | Palliative Care Progress Note ---
Date of Service December 21, 2020 Assessment & Plan (1) Agitation: Plan: Resolved. (2) Palliative care encounter: Plan: Goal of care is comfort at this time. She appears comfortable with morphine infusion continuing to run at 2.5mg per hour with no apparent toxicity. I spoke with her to update him. He is positive for covid and not able to visit but appreciates updates and confirms that goal is "keep her comfortable". (3) Acute respiratory failure with hypoxia: (4) Pneumonia due to COVID-19 virus: Admission and Anticipated Discharge Date Admission Date: December 13, 2020 Subjective No response to voice or touch. Review of Systems Review of Systems: Unobtainable due to reduced consciousness [place] symptom Assessment Scale Pain by observation 0/3 Dyspnea by observation 0/3 Palliative Performance Score 10% Physical Exam Constitutional: + ill appearing and + thin ENMT: Mouth: + dry oral mucous membranes Respiratory: no labored breathing Cardiovascular: no mottling Gastrointestinal (Abdomen): soft Musculoskeletal: Extremities: + muscle atrophy Neurologic: + obtunded Results & Data ([facility]) Vital Signs (Past 12 Hours) Vital Signs Pulse Resp Pulse Ox 12/21/20 05:56 105 H 8 L 92 12/21/20 04:19 104 H 7 L 93 12/21/20 02:32 101 H 6 L 96 PG Care Time/CCT Total # of Minutes Spent Total Time Spent with Patient: Total time spent is greater than 50% in coordination of care (as documented) at patient's floor/unit and/or counseling patient: Coding Level of Care Code 77923 Subseq Hosp Care Lvl 2 Diagnoses Agitation R45.1 Palliative care encounter Z51.5 Acute respiratory failure with hypoxia J96.01 Pneumonia due to COVID-19 virus U07.1; J12.82
[2020-12-21] MEDS: MoRPHine SULF/NSS 250 MG/250 ML BTL IV SCH (15:24)
--- NOTE | 2020-12-21 16:02 | Hospitalist Progress Note ---
Date of Service December 21, 2020 Assessment & Plan (1) Acute respiratory failure with hypoxia: (2) Sepsis: (3) Pneumonia due to COVID-19 virus: Plan: Patient is 85 yr female who has significant past medical history of depression with anxiety, chronic interstitial cystitis, HLD, cerebral vascular disease, somatization, IBS who presents to ER secondary to altered mental status x2 days. Sepsis Acute hypoxic respiratory failure-POA Acute metabolic encephalopathy-POA Covid PNA UTI Possible PE Acute Kidney Injury Hypernatremia Metabolic/Lactic acidosis Currently on Comfort measures only Appreciate Palliative Care Input (4) Acute metabolic encephalopathy: (5) UTI (urinary tract infection): (6) Elevated troponin: (7) YUMIKO (acute kidney injury): (8) Metabolic acidosis: (9) Lactic acidosis: (10) Hypernatremia: (11) Hypokalemia: (12) Pre-diabetes: Admission and Anticipated Discharge Date Admission Date: December 13, 2020 Subjective Patient seen and examined at bedside Unable to provide history as patient is obtunded No distress on exam Currently on comfort measures only Review of Systems Review of Systems: Unobtainable due to reduced consciousness Physical Exam Physical Exam: Physical Exam: General Appearance:ill appearing, no distress Head: normocephalic, Atraumatic Eyes: normal inspection Neck: supple, Trachea midline Respiratory/Chest: Decreased breath sounds, CTA Cardiovascular: S1, S2, No murmur Abdomen/GI:Soft, Non tender, Bowel sounds present Extremities/Musculoskeletal:normal inspection, no edema Neurologic/Psych:obtunded Skin: normal color, warm Results & Data Results & Data ([facility]) Vital Signs (Past 12 Hours) Vital Signs Pulse Resp Pulse Ox 12/21/20 05:56 105 H 8 L 92 12/21/20 04:19 104 H 7 L 93
[2020-12-22] MEDS: LORazepam 0.5 MG/1 ML VIAL IV SCH ×4 (05:17→23:49)
--- NOTE | 2020-12-22 14:09 | Hospitalist Progress Note ---
Date of Service December 22, 2020 Assessment & Plan (1) Acute respiratory failure with hypoxia: (2) Sepsis: (3) Pneumonia due to COVID-19 virus: Plan: Patient is 85 yr female who has significant past medical history of depression with anxiety, chronic interstitial cystitis, HLD, cerebral vascular disease, somatization, IBS who presents to ER secondary to altered mental status x2 days. Sepsis Acute hypoxic respiratory failure-POA Acute metabolic encephalopathy-POA Covid PNA UTI Possible PE Acute Kidney Injury Hypernatremia Metabolic/Lactic acidosis Currently on Comfort measures only Appreciate Palliative Care Input Continue current management Palliative care on board (4) Acute metabolic encephalopathy: (5) UTI (urinary tract infection): (6) Elevated troponin: (7) YUMIKO (acute kidney injury): (8) Metabolic acidosis: (9) Lactic acidosis: (10) Hypernatremia: (11) Hypokalemia: (12) Pre-diabetes: Admission and Anticipated Discharge Date Admission Date: December 13, 2020 Subjective Patient seen and examined at bedside Remains obtunded Clinically no significant change from yesterday Currently on comfort measures only on IV Heparin Review of Systems Review of Systems: Unobtainable due to reduced consciousness Physical Exam Physical Exam: Physical Exam: General Appearance:ill appearing, no distress Head: normocephalic, Atraumatic Eyes: normal inspection Neck: supple, Trachea midline Respiratory/Chest: Decreased breath sounds, CTA Cardiovascular: S1, S2, No murmur Abdomen/GI:Soft, Non tender, Bowel sounds present Extremities/Musculoskeletal:normal inspection, no edema Neurologic/Psych:obtunded Skin: normal color, warm Results & Data Results & Data ([facility]) Vital Signs (Past 12 Hours) Vital Signs Temp Pulse Resp BP Pulse Ox 12/22/20 11:38 36.6 C 100 H 14 100/58 L 92 12/22/20 05:23 101 H 17 93
[2020-12-23] MEDS: LORazepam 0.5 MG/1 ML VIAL IV SCH ×4 (06:15→23:55)
--- NOTE | 2020-12-23 12:06 | Palliative Care Progress Note ---
Date of Service December 23, 2020 Assessment & Plan (1) Agitation: Plan: Comfortable on morphine infusion. (2) Palliative care encounter: Plan: Continues on comfort care. No change in morphine infusion. Updated her . He is requesting a visit when he is off quarantine. He is 9 days out from positive covid test. She is also nine days out. We will discuss this on Saturday. He is agreeable to this. (3) Pneumonia due to COVID-19 virus: Admission and Anticipated Discharge Date Admission Date: December 13, 2020 Subjective No response to voice or touch. Appears comfortable with care per electronics tech of Systems Review of Systems: Unobtainable due to reduced consciousness [place] Symptom Assessment Scale Pain by observation 0/3 Dyspnea by observation 0/3 Palliative Performance Score 10% Physical Exam Constitutional: no acute distress ENMT: Mouth: + dry oral mucous membranes Respiratory: no respiratory distress Neurologic: + obtunded PG Care Time/CCT Total # of Minutes Spent Total Time Spent with Patient: Total time spent is greater than 50% in coordination of care (as documented) at patient's floor/unit and/or counseling patient: Coding Level of Care Code 88042 Subseq Hosp Care Lvl 2 Diagnoses Agitation R45.1 Palliative care encounter Z51.5 Pneumonia due to COVID-19 virus U07.1; J12.82
--- NOTE | 2020-12-23 15:40 | Hospitalist Progress Note ---
Date of Service December 23, 2020 Assessment & Plan (1) Acute respiratory failure with hypoxia: (2) Sepsis: (3) Pneumonia due to COVID-19 virus: Plan: Patient is 85 yr female who has significant past medical history of depression with anxiety, chronic interstitial cystitis, HLD, cerebral vascular disease, somatization, IBS who presents to ER secondary to altered mental status x2 days. Sepsis Acute hypoxic respiratory failure-POA Acute metabolic encephalopathy-POA Covid PNA UTI Possible PE Acute Kidney Injury Hypernatremia Metabolic/Lactic acidosis Currently on Comfort measures only Appreciate Palliative Care Input Continue current management Palliative care on board (4) Acute metabolic encephalopathy: (5) UTI (urinary tract infection): (6) Elevated troponin: (7) YUMIKO (acute kidney injury): (8) Metabolic acidosis: (9) Lactic acidosis: (10) Hypernatremia: (11) Hypokalemia: (12) Pre-diabetes: Admission and Anticipated Discharge Date Admission Date: December 13, 2020 Subjective Patient seen and examined at bedside Remains obtunded No response to sternal rub Currently on comfort measures only on IV Morphine Review of Systems Review of Systems: Unobtainable due to reduced consciousness Physical Exam Physical Exam: Physical Exam: General Appearance:ill appearing, no distress Head: normocephalic, Atraumatic Eyes: normal inspection Neck: supple, Trachea midline Respiratory/Chest: Decreased breath sounds, CTA Cardiovascular: S1, S2, No murmur Abdomen/GI:Soft, Non tender, Bowel sounds present Extremities/Musculoskeletal:normal inspection, no edema Neurologic/Psych:obtunded Skin: normal color, warm
[2020-12-24] MEDS: LORazepam 0.5 MG/1 ML VIAL IV SCH ×3 (05:58→17:42)
[2020-12-24] MEDS: MoRPHine SULF/NSS 250 MG/250 ML BTL IV SCH (17:41)
--- NOTE | 2020-12-24 17:59 | Hospitalist Progress Note ---
Date of Service December 24, 2020 Assessment & Plan (1) Acute respiratory failure with hypoxia: (2) Sepsis: (3) Pneumonia due to COVID-19 virus: Plan: Patient is 85 yr female who has significant past medical history of depression with anxiety, chronic interstitial cystitis, HLD, cerebral vascular disease, somatization, IBS who presents to ER secondary to altered mental status x2 days. Sepsis Acute hypoxic respiratory failure-POA Acute metabolic encephalopathy-POA Covid PNA UTI Possible PE Acute Kidney Injury Hypernatremia Metabolic/Lactic acidosis Currently on Comfort measures only Appreciate Palliative Care Input Continue current management Palliative care on board RN notified that patient ceased breathing and she was pronounced at 17:35. I informed patient's over the phone. (4) Acute metabolic encephalopathy: (5) UTI (urinary tract infection): (6) Elevated troponin: (7) YUMIKO (acute kidney injury): (8) Metabolic acidosis: (9) Lactic acidosis: (10) Hypernatremia: (11) Hypokalemia: (12) Pre-diabetes: Admission and Anticipated Discharge Date Admission Date: December 13, 2020 Subjective Patient seen and examined at bedside Remains obtunded this morning on IV Morphine Review of Systems Review of Systems: Unobtainable due to reduced consciousness Physical Exam Physical Exam: Physical Exam: General Appearance:ill appearing, no distress Head: normocephalic, Atraumatic Eyes: normal inspection Neck: supple, Trachea midline Respiratory/Chest: Decreased breath sounds, CTA Cardiovascular: S1, S2, No murmur Abdomen/GI:Soft, Non tender, Bowel sounds present Extremities/Musculoskeletal:normal inspection, no edema Neurologic/Psych:obtunded Skin: normal color, warm
--- NOTE | 2020-12-24 18:01 | Discharge Summary ---
Date of Service December 24, 2020 Admission HPI Per Admitting Provider This is an 85-year-old female who has significant past medical history of depression with anxiety, chronic interstitial cystitis, HLD, cerebral vascular disease, somatization, IBS who presents to ER secondary to altered mental status x2 days. is at bedside and provides history. Unable to obtain history and ROS from patient. He states he has noted increased confusion over the last several months. No formal diagnosis of dementia. However over the past 2 days he has noticed a significant increase in confusion, lethargy, poor oral intake, sinus congestion and cough x1 day. He also admits to patient having diarrhea for the last 2 to 3 days. He denies any documented fever patient complaint of chest pain or visible respiratory distress. He states that she has been in the house and has not gone anywhere for the past 2 years. She is not vaccinated for Covid. and daughter leave the house for work purposes. No known confirmed exposure. states at baseline she is alert to self and surroundings, able to feed herself with assistance and able to walk with assistance. This is rapidly declined over the past 2 days. He states overall intake has been diminished for the past 2 days, but over the last several months her appetite has decreased. Over the past 2 days he has only got a few ounces of water in her. She has not been able to take any of her medication. History from also difficult to obtain. In ED patient was on respiratory standpoint and hypoxic. She did require BiPAP therapy initially and there was concern for possible volume overload and she received 20 mg of IV Lasix. Lab work revealed elevated WBC 13.03, H&H 12.6 and 37.11, sodium 152 calcium 3.4, BUN for 1, creatinine 1.90, glue was 140, lactate 2.8, troponin 0 0.095, positive urine this, chest x-ray concerning for pneumonia or edema and SARS-CoV-2 positive. Admission Exam Per Admitting Provider Physical Exam Physical Exam: Constitutional: WD/WN, vitals as above, +bipap, sitting up in bed, restless and constantly reaching,unable to answer questions appropriately, confused Head: Normocephalic, Atraumatic Eyes: PERRL, conjunctivae normal, anicteric sclerae ENMT: external ear and nose normal, oropharynx normal Neck: trachea midline, no thyromegaly normal visual inspection Respiratory: increased respiratory effort, lungs clear to auscultation, no wheeze, rales, rhonchi. +bipap Cardiovascular: RRR, no murmur, no edema Vessels: no JVD or carotid bruit Chest: normal inspection of chest Abdomen: normal bowel sounds, soft, nontender, no hepatosplenomegaly Musculoskeletal: no cyanosis or clubbing, pt unable to cooperate with strength testing but arom x 4 Skin: no rashes, warm and dry normal turgor Neurologic: PERRL no face palsy, CN's II-XI grossly intact bilaterally and moves all extremities Psychiatric: alert but not oriented, confused Lymphatic: no cervical or axillary lymphadenopathy : deferred Principal Diagnosis Sepsis Acute hypoxic respiratory failure Acute metabolic encephalopathy Covid 19 PNA UTI Possible PE Acute Kidney Injury Hypernatremia Metabolic/Lactic acidosis Discharge Data Allergies Allergy/AdvReac Type Severity Reaction Status Date / Time Penicillins Allergy Severe SWELLING Verified 12/13/20 08:20 OF THE FACE Sulfa (Sulfonamide Allergy Severe Hives Verified 12/13/20 08:20 Antibiotics) naproxen Allergy Intermediate RASH Verified 12/13/20 08:20 paroxetine Allergy Intermediate MUSCLE PAIN Verified 12/13/20 08:20 tapentadol Allergy Mild SKIN Verified 12/13/20 08:20 IRRITATION codeine AdvReac Mild DROWSINESS Verified 12/13/20 08:20 Consultations 12/13/20 07:36 ED Decision to Admit Stat 12/15/20 07:46 Consult Plumbing Inspector Routine 12/15/20 07:57 Consult Nephrology Routine 12/15/20 12:58 Consult Palliative Care Routine Hospital Course (1) Acute respiratory failure with hypoxia: (2) Sepsis: (3) Pneumonia due to COVID-19 virus: Patient is 85 yr female who has significant past medical history of depression with anxiety, chronic interstitial cystitis, HLD, cerebral vascular disease, somatization, IBS who presents to ER secondary to altered mental status x2 days. Sepsis Acute hypoxic respiratory failure-POA Acute metabolic encephalopathy-POA Covid PNA UTI Possible PE Acute Kidney Injury Hypernatremia Metabolic/Lactic acidosis Currently on Comfort measures only Appreciate Palliative Care Input Continue current management Palliative care on board RN notified that patient ceased breathing and she was pronounced at 17:35. I informed patient's over the phone. (4) Acute metabolic encephalopathy: (5) UTI (urinary tract infection): (6) Elevated troponin: (7) YUMIKO (acute kidney injury): (8) Metabolic acidosis: (9) Lactic acidosis: (10) Hypernatremia: (11) Hypokalemia: (12) Pre-diabetes: Total Time Total Time Spent Total Time Spent (In Minutes): 35 minutes Discharge Plan Discharge Items Patient Disposition: Discharge Diagnosis: Sepsis Acute hypoxic respiratory failure Acute metabolic encephalopathy Covid 19 PNA UTI Possible PE Acute Kidney Injury Hypernatremia Metabolic/Lactic acidosis Other Date/Time: 12/24/20 17:35
== END 2020-12-24 21:26 | disposition expired | DRG 871 ==
LOC: ED 05:04 → 2S 09:09 → SUATTDRO 09:09 → 2S 09:54 → 2W 12-16 13:44
DX: R73.03 Prediabetes; R45.1 Restlessness and agitation; J12.82 Pneumonia due to coronavirus disease 2019; E87.0 Hyperosmolality and hypernatremia; N17.9 Acute kidney failure, unspecified; I24.8 Other forms of acute ischemic heart disease; G93.41 Metabolic encephalopathy; E87.2 Acidosis; N39.0 Urinary tract infection, site not specified; F41.8 Other specified anxiety disorders; Z88.5 Allergy status to narcotic agent; Z66 Do not resuscitate; Z88.0 Allergy status to penicillin; I26.99 Other pulmonary embolism without acute cor pulmonale; E87.6 Hypokalemia; U07.1 COVID-19; A41.89 Other specified sepsis; J96.01 Acute respiratory failure with hypoxia; Z88.2 Allergy status to sulfonamides; Z51.5 Encounter for palliative care